=== PATIENT | male | born 1955 | race Caucasian/White ===

== ENCOUNTER 2017-02-16 08:00 | Inpatient (IN) ==
--- NOTE | 2017-02-16 08:10 | Emergency Department Note ---
Siddhartha Quintanilla Emily, am scribing for, and in the presence of, Power Sexton MD 08:08. Carlie Quintanilla James D, MD, personally performed the services described in this documentation, ascribed by Filomena Carl in my presence, and it is both accurate and complete 808 . Arrival - Arrival Chief Complaint: Shortness of Breath Stated Complaint: sob Mode of Arrival: Stretcher Limitations: No Limitations Source: Patient, EMS Time Seen by Provider: 02/16/17 08:02 - History of Present Illness HPI Narrative: Pt is a 61 y/o male who was brought to ED by EMS from home for further evaluation of severe SOB that suddenly started this morning. Pt has mild swelling in lower extremities, GRECO, and MARTINEZ, but denies chest pain or fever. Pt was put on CPAP and given nitro at home before leaving home and had relief, until he got up and walked around, per EMS. Pt denies smoking or former smoker. Onset (ago): hour(s) Consistency: constant Severity: moderate, severe Severity scale (1-10): 8 Allergies/Adverse Reactions: Allergies Allergy/AdvReac Type Severity Reaction Status Date / Time No Known Allergies Allergy Verified 02/16/17 08:16 Review of System - Review of System 12 point system: reviewed and no additional remarkable complaints except as stated - Review of System Constitutional: Absent: fever, weakness Respiratory: Present: respiratory distress (SOB) Cardiovascular: Present: dyspnea on exertion, edema (in lower extremities). Absent: chest pain Gastrointestinal: Absent: abdominal pain, nausea, vomiting Musculoskeletal: Absent: arm pain Skin: Absent: rash Neurological: Present: headache Medical,Surgical,& Family Hx - Social History Marital Status: Single Lives With:: Alone Functional capacity: independent ambulation Exam Vital Signs: Vital Signs Temperature 98.1 F 02/16/17 08:00 Pulse Rate 73 02/16/17 08:00 Respiratory Rate 30 H 02/16/17 08:00 Blood Pressure 146/86 02/16/17 08:00 O2 Sat by Pulse Oximetry 86 L 02/16/17 08:00 GENERAL: This is a well-nourished well-developed morbidly obese white male in mild respiratory distress. VITAL SIGNS: Reviewed HEENT: Head is atraumatic and normocephalic. Pupils are equal round react to light. Extraocular movements are intact. Oropharynx is benign with moist mucous membranes. NECK: Neck is soft and supple without tenderness. There are no masses. There is no lymphadenopathy. LUNGS: Lungs are clear to auscultation. Chest rises symmetrically. There is no chest wall tenderness. CV: Heart is rapid rate regular rhythm without murmurs rubs or gallops. ABDOMEN: Abdomen is soft, nontender to palpation. There are no abdominal abnormal masses palpated. There is no organomegaly. Bowel sounds are present and active. SKIN: Skin is warm and dry. No rash. EXTREMITIES: Patient has full range of motion without tenderness. There is 1+ pedal edema. NEUROLOGIC: Awake alert and oriented 4. Cranial nerves II through XII are grossly intact. Motor is 5 over 5 in all extremities bilaterally. Results - Labs CBC & BMP: 02/16/17 08:20 02/16/17 08:20 Lab Results: I have reviewed the patients labs Labs: Laboratory Tests 02/16/17 08:13 ABG pH 7.389 ABG pCO2 41.8 ABG pO2 89.2 ABG HCO3 24.4 ABG Total CO2 20.7 L ABG O2 Saturation 96.2 ABG Base Excess 0.1 Laboratory Tests 02/16/17 08:20 WBC 10.9 RBC 5.43 Hgb 17.4 Hct 52.4 H Plt Count 151 Lymph % (Auto) 19.3 L Neut # (Auto) 7.9 H Laboratory Tests 02/16/17 08:20 B-Natriuretic Peptide 155 H Laboratory Tests 02/16/17 08:20 Sodium 140 Potassium 4.8 Chloride 105 Carbon Dioxide 27 BUN 23 H Creatinine 1.80 H GFR Calculation 73 Glucose 195 H AST 20 Troponin I 0.906 H Albumin/Globulin Ratio 1.0 L - EKG EKG results: interpreted by ERMWilly, sinus rhythm (93) - Impressions EKG: Normal sinus rhythm with rate of 93, old inferior NC, old anteroseptal NC, nonspecific ST-T wave changes. - Diagnostic Findings Procedure: Chest x-ray: image reviewed by me, report reviewed by me (At the right lung base, there is indistinctness of the hemidiaphragm. This could be due to combination of eventration, and infiltrate and/or atelectasis. PA and lateral chest recommended.), CT - chest: image reviewed by me (Bilateral massive pulmonary emboli.), Ultrasound: report reviewed by me (Venous doppler: Eccentric, nonocclusice probable chronic DVT left popliteal vein.) Disposition Clinical Impression: Dyspnea on exertion, Morbid obesity, Deep vein thrombosis (DVT) of popliteal vein of left lower extremity, Bilateral pulmonary embolism Case discussed with: patient Disposition: Still a Patient Condition: Guarded
[2017-02-16 08:18] LABS: ABG Base Excess 0.1 MMOL/L (-2.5-2.5); ABG HCO3 24.4 MMOL/L (20-26); ABG Oxygen Saturation 96.2 % (95-100); ABG PCO2 41.8 MM HG (35-48); ABG PH 7.389 (7.35-7.45); ABG PO2 89.2 MM HG (80-95); ABG TCO2 20.7 MMOL/L (23-27)
--- NOTE | 2017-02-16 08:26 | EKG Report ---
Stationary ECG Study [facility] ER Test Date: 02/16/2017 8:06:27 AM Pat Name: ALYX SHELTON Department: Room: Gender: M Blowing Engineer: : 1955 Requested by: Power Aguilera Order Number: [id number] Reading MD: BERE TUNRER Intervals [place] Rate: 93 P: 54 [place]: 184 QRS: -76 QRSD: 94 T: 52 QT: 351 QTc: 402 Interpretive Statements SINUS RHYTHM INFERIOR MYOCARDIAL INFARCTION, OF INDETERMINATE AGE ANTEROSEPTAL MYOCARDIAL INFARCTION, OF INDETERMINATE AGE Electronically Signed On 02-16-17 09:41:05 CDT by BERE TURNER [email or web address]
[2017-02-16 08:28] LABS: Basophils % 0.3 % (0.0-0.8)
[2017-02-16 08:32] LABS: Lymphocytes # 2.1 10*3/uL (1.4-4.0); Monocytes % 6.9 % (1.7-12.7)
[2017-02-16 08:39] LABS: Eosinophils # 0.1 10*3/uL (0.0-0.87); Eosinophils % 0.5 % (0.00-10.9); Hematocrit 52.4 VOL% (42.0-52.0); Hemoglobin 17.4 GM/DL (14.0-18.0); Immature Granulocytes % 0.4 %; Immature Granulocytes Absolute 0.04 #; Lymphocytes % 19.3 % (21.2-54.2); Mean Corpuscular HGB Conc 33.2 GM/DL (32-36); Mean Corpuscular Hemoglobin 32 PG (27-34); Mean Corpuscular Volume 96.5 FL (87-102); Monocytes # 0.8 10*3/uL (0.11-0.8); NRBC # 0.03 10*3/uL; Neutrophils # 7.9 10*3/uL (1.4-7.4); Neutrophils % 72.6 % (38.7-73.9); Platelet Count 151 T/CUMM (130-400); Red Blood Count 5.43 MC/CUMM (3.8-5.5); Red Cell Distribution Width 14.7 % (9.3-17.3); White Blood Count 10.9 T/CUMM (4-12)
--- NOTE | 2017-02-16 08:41 | XRay Report ---
Portable chest. Indication: Shortness of breath. The heart is upper limits of normal in size. The pulmonary vasculature is normal. There is indistinctness of the right hemidiaphragm. This could be due to volume loss, infiltrate, and at least partly by eventration of the right hemidiaphragm. PA and lateral chest recommended for further evaluation. The left lung is essentially clear. Possible small granuloma at the lateral aspect of the left lung base. No pneumothorax. Degenerative changes in the spinal column. Impression: At the right lung base, there is indistinctness of the hemidiaphragm. This could be due to a combination of eventration, and infiltrate and/or atelectasis. PA and lateral chest recommended. PROCEDURE INTERPRETED AT [facility] DEPARTMENT OF RADIOLOGY Final Report Signed by: Dr. Florencia Solis
[2017-02-16 08:58] LABS: Albumin 3.8 G/DL (3.4-5.0); Bilirubin,Total 0.6 MG/DL (0.2-1.0); Calcium 8.7 MG/DL (8.5-10.1); Osmolality,Calculated 287.4 MOS/KG (273-304); Potassium 4.8 MMOL/L (3.5-5.1); Total Protein 7.3 G/DL (6.4-8.3)
[2017-02-16] MEDS ORDERED: ENOXAPARIN 120 MG/0.8 ML SYRINGE SUBCUT STA (09:00)
[2017-02-16] MEDS ORDERED: ENOXAPARIN 120 MG/0.8 ML SYRINGE SUBCUT ONE (09:02)
[2017-02-16 09:04] LABS: Troponin I Only 0.906 NG/ML (0.00-0.045)
--- NOTE | 2017-02-16 09:15 | Ultrasound Report ---
US venous doppler LE BI Indication: Lower extremity edema. Dyspnea. BILATERAL LOWER EXTREMITY VENOUS ULTRASOUND Comparison: None Findings: Graded grayscale compression, color Doppler and pulsed Doppler ultrasound evaluation of the venous structures performed. Normal compressibility, augmentation and color saturation is present within the right common femoral, superficial femoral, popliteal and proximal greater saphenous veins. Similar normal features are present in the left common femoral vein and superficial femoral vein. There is eccentric nonocclusive probable chronic DVT in the left popliteal vein. Impression: Eccentric, nonocclusive probable chronic DVT left popliteal vein. PROCEDURE INTERPRETED AT [facility] DEPARTMENT OF RADIOLOGY Final Report Signed by: Rod John M.D.
--- NOTE | 2017-02-16 10:40 | Cardiology History & Physical ---
Assessment and Plan (1) Cor pulmonale, acute Status: Acute Assessment and plan: 1. 61-year-old BMI 62.5 WM oral tobacco user with hypertension, NIDDM, DVT in 2005 after surgery for incarcerated inguinal hernia, now presents with 2 days of progressive now severe dyspnea on exertion with bilateral proximal pulmonary emboli and acute cor pulmonale with severe right ventricular enlargement and elevated troponin consistent with submassive pulmonary embolism. 2. He is received Lovenox already which is appropriate 3. Discussed with him the risks and benefits of catheter directed thrombolysis versus conservative therapy with anticoagulation. He is agreeable to intervention for quicker resolution of his symptoms. We will plan this today. I discussed with the patient the risks and benefits of catheter directed thrombolysis for submassive pulmonary emboli including but not limited to: , stroke, heart attack, vascular damage, reaction to medicine, bleeding requiring blood transfusion, failure of the procedure, and the possible need for planned or emergency surgery. I have answered all the patient's questions regarding the procedure, and the patient is agreeable to proceed. Current Visit: Yes (2) Diabetes Status: Acute Current Visit: Yes (3) DVT (deep venous thrombosis) Status: Acute Current Visit: Yes (4) Bilateral pulmonary embolism Status: Acute Current Visit: Yes History of Present Illness Chief complaint: sob History of present illness: Mr. Gama is a 61 year old male who goes to a clinic sporadically and [place]. The he has not been hospitalized in many years. He has chronic dependent edema worse on the right. He has increased dyspnea on exertion for the last 2 days which eventually caused him come the emergency room today where he was found to have large proximal PEs on CT scan. He denies chest discomfort. He says he does have some orthostasis but his blood pressure is currently stable. He had a DVT in 2005 after he had surgery for incarcerated hernia. He has no history of TIA or stroke. He has no history of bleeding problems and just that one DVT. He is not allergic to anything. He has no previous cardiac problems with no heart attack heart failure rhythm problem or chest pains. He does have some daytime somnolence but has not been diagnosed with REID. Allergies Allergy/AdvReac Type Severity Reaction Status Date / Time No Known Allergies Allergy Verified 02/16/17 08:16 Medical,Surgical,& Family Hx - Medical History Cardio: History of: Hypertension Endocrine: History of: Diabetes Mellitus (NIDDM) - Social History Smoking Status: Never smoker Frequency of Alcohol Use: None Type of Drug Use: None Cardiology Physical Exam - Constitutional Vitals: Vital Signs Temp Pulse Resp BP Pulse Ox 98.1 F 73 30 H 146/86 86 L 02/16/17 08:00 02/16/17 08:00 02/16/17 08:00 02/16/17 08:00 02/16/17 08:00 Intake and Output 02/15/17 02/16/17 02/16/17 23:59 07:59 15:59 Other: Weight 226.796 kg Patient Weight 02/16/17 23:59 Weight 226.796 kg General appearance: mild distress, morbidly obese - Head Head exam: Present: normal inspection, normocephalic, atraumatic - Neck Neck exam: Present: normal inspection - Cardiovascular Cardiovascular exam: Present: tachycardia. Absent: diastolic murmur, rubs, systolic murmur - GI/Abdominal GI/Abdominal exam: Present: soft. Absent: tenderness - Extremities Exam Extremities exam: Present: edema (Venous insufficiency changes with widened 2+ edema on the right and 1+ in the left) - Neurological Exam Neurological exam: Present: alert, oriented X3 - Psychiatric Psychiatric exam: Present: normal affect Result/EKG - Labs CBC & BMP: 02/16/17 08:20 02/16/17 08:20 Labs: Laboratory Results - last 24 hr 02/16/17 02/16/17 02/16/17 08:13 08:20 08:20 WBC 10.9 RBC 5.43 Hgb 17.4 Hct 52.4 H MCV 96.5 MCH 32 MCHC 33.2 RDW 14.7 Plt Count 151 MPV 10.0 Neut % (Auto) 72.6 Lymph % (Auto) 19.3 L [place] % (Auto) 6.9 Eos % (Auto) 0.5 Baso % (Auto) 0.3 Neut # (Auto) 7.9 H Lymph # (Auto) 2.1 [place] # (Auto) 0.8 Eos # (Auto) 0.1 Baso # (Auto) 0.0 Immature Gran % 0.4 Nucleated RBC % 0.3 Immature Gran # 0.04 Nucleated RBCs # 0.03 Immature Plt Fraction 0.0 ABG pH 7.389 ABG pCO2 41.8 ABG pO2 89.2 ABG HCO3 24.4 ABG Total CO2 20.7 L ABG O2 Saturation 96.2 ABG Base Excess 0.1 Sodium 140 Potassium 4.8 Chloride 105 Carbon Dioxide 27 Anion Gap 12.8 BUN 23 H Creatinine 1.80 H GFR Calculation 73 BUN/Creatinine Ratio 12.00 Glucose 195 H Calculated Osmolality 287.4 Calcium 8.7 Total Bilirubin 0.60 AST 20 ALT 27 Alkaline Phosphatase 85 Troponin I 0.906 H B-Natriuretic Peptide Total Protein 7.3 Albumin 3.8 Globulin 3.5 Albumin/Globulin Ratio 1.0 L 02/16/17 08:20 WBC RBC Hgb Hct MCV MCH MCHC RDW Plt Count MPV Neut % (Auto) Lymph % (Auto) [place] % (Auto) Eos % (Auto) Baso % (Auto) Neut # (Auto) Lymph # (Auto) [place] # (Auto) Eos # (Auto) Baso # (Auto) Immature Gran % Nucleated RBC % Immature Gran # Nucleated RBCs # Immature Plt Fraction ABG pH ABG pCO2 ABG pO2 ABG HCO3 ABG Total CO2 ABG O2 Saturation ABG Base Excess Sodium Potassium Chloride Carbon Dioxide Anion Gap BUN Creatinine GFR Calculation BUN/Creatinine Ratio Glucose Calculated Osmolality Calcium Total Bilirubin AST ALT Alkaline Phosphatase Troponin I B-Natriuretic Peptide 155 H Total Protein Albumin Globulin Albumin/Globulin Ratio
--- NOTE | 2017-02-16 10:53 | CT Report ---
CT chest PE study Indication: Shortness of breath. CT CHEST WITH CONTRAST, PE PROTOCOL DLP: 1094 mGy*cm. One or more of the following dose reduction techniques was used: Automated exposure control, adjustment of the mA and/or kV according the patient size, or use of iterative reconstruction techniques. Comparison: None Technique: Axial CT images of the chest were obtained during the pulmonary arterial phase of contrast injection. Coronal reconstructions were provided. Omnipaque 350, 80 cc. Findings: Image transfer delay between CT scanner in PACS, with report only now being dictated. Time of initial study 0957 hours, with preliminary interpretation by 0930 hours. Acute pulmonary embolus is present within the right upper lobe, right middle lobe, right lower lobe, left upper lobe and left lower lobe proximal pulmonary arteries. The thrombus is not draped over the main pulmonary artery bifurcation. However, thrombus burden is significant. Main pulmonary artery is 36 mm diameter. The LV-RV ratio is 0.74 indicating right heart strain by imaging. Heart size is normal. Aorta is intact without dissection or aneurysm. Variant anatomy of the left vertebral artery originating directly off the arch noted. Atelectasis and pulmonary hypoinflation of the lungs noted. No confluent areas of consolidation identified. However, there is a cluster of nodules within the lingula measuring approximately 20 x 14 mm in size. Pleural spaces are clear. Limited views of the upper abdomen show morbid obesity and fatty infiltration of the liver. Upper abdomen is otherwise unremarkable. Impression: 1. Acute pulmonary embolus bilateral main pulmonary arteries as described. Evidence of right heart strain. 2. Small cluster of nodules within the lingula, 20 x 14 mm in size. Three-month follow-up CT necessary to evaluate change. Comment: Critical test result discussed primarily with Dr. Wheat at approximately 1000 hours. PROCEDURE INTERPRETED AT [facility] DEPARTMENT OF RADIOLOGY Final Report Signed by: Rod John M.D.
[2017-02-16] MEDS ORDERED: ALTEPLASE 2 MG VIAL ONE (11:02)
[2017-02-16] MEDS ORDERED: LIDOCAINE 1% 20 ML VIAL ONE ×2 (11:07→12:32)
[2017-02-16] MEDS ORDERED: HYDROmorphone 2 MG/1 ML VIAL ONE (11:24)
[2017-02-16] MEDS ORDERED: MIDAZOLAM 2 MG/2 ML VIAL ONE (11:24)
[2017-02-16] MEDS ORDERED: MAGNESIUM SULF RIDER 4 GM in PREMIX 1 EACH IV PRN (13:24)
[2017-02-16] MEDS ORDERED: MAGNESIUM SULF RIDER 2 GM in PREMIX 1 EACH IV PRN (13:24)
[2017-02-16] MEDS ORDERED: ACETAMINOPHEN 325 MG TABLET PO PRN (13:24)
[2017-02-16] MEDS ORDERED: SODIUM CHLORIDE 0.9% 1,000 ML IV SCH ×2 (13:25)
[2017-02-16] MEDS ORDERED: ALTEPLASE 6 MG in SODIUM CHLORIDE 0.9% 120 ML IV ONE (13:25)
--- NOTE | 2017-02-16 13:29 | Operative Note ---
Date of procedure: 02/16/17 Procedure Preformed: Placement of catheter directed thrombolysis catheters to right and left pulmonary artery Surgeon / Physician: Kolby Herrera Post-op diagnosis: same Findings: Findings: Placement of right and left EKOS catheters to right and left pulmonary arteries for catheter directed thrombolysis Indication: Bilateral submassive pulmonary emboli Specimens: none sent Estimated blood loss: minimal Anesthesia: other Disposition: ICU
--- NOTE | 2017-02-16 14:07 | Cardiology Operative Report ---
Date of Procedure:: 02/16/17 Post-op diagnosis: same Procedure: Procedure performed: 1. Placement of left femoral vein sheath 2 using ultrasonic guidance 2. Placement of EKOS catheter in left pulmonary artery for catheter directed thrombolysis 3. Placement of EKOS catheter in right pulmonary artery for catheter directed thrombolysis Brief clinical summary: Mr. Gama is a 51-year-old with severe shortness of breath elevated troponin and severely elevated right ventricle with submassive pulmonary emboli bilaterally and acute cor pulmonale. Description of procedure: After obtaining informed consent the patient transfer the Conservation Or Heritage Architect of the right groin was prepped and draped in usual sterile fashion. Next a short 6 Togolese sheath was placed in the right femoral vein using a Seldinger technique. This was done with some difficulty given the lack of a pulse given the patient's large pannus. I then changed out the 6 Togolese sheath for a 12 Togolese sheath successfully. However when I advanced the J-wire admit with some resistance and the sheath completely "backed out" and was unable to reestablish access using the short 6 Togolese sheath. I then held pressure for 11 minutes which obtained hemostasis. I made multiple cystic significant superior to this without success. I therefore had the left groin prepped and draped. Then using ultrasonic guidance I was able to access the left femoral vein 2. I advanced a long J-wire with a bent pigtail catheter manipulated the left pulmonary artery with only modest difficulty. Then changed out the pigtail for EKOS outer catheter. The wire was then removed and the EKOS inner catheter was advanced in fixed in place. Next the coolant and TPA infusion were started. After this the bent pigtail was advanced over a long J-wire and the other sheath was also in the left femoral vein I was able to access the right pulmonary artery fairly quickly. The wire was advanced and the pigtail was removed. Next I advanced an outer EKOS catheter over the wire into the right pulmonary artery. The wire was then removed and inner catheter was advanced and fixed in place. The coolant and TPA infusion were then started. Placement of the catheter was documented with fluoroscopy save. Impression: 1. Status post successful placement of EKOS catheters in the left and right pulmonary artery for catheter directed thrombolysis 2. Placement of 2 short 6 Togolese sheath in the left femoral vein to facilitate catheter placement. 3. Placement of 12 Togolese sheath in right femoral vein with loss of access; prolonged pressure was used to obtain hemostasis as detailed above. Recommendation discussion: I believe achieved very good result with regard to placement of right and left pulmonary artery catheters for thrombolysis. We will give 1 mg/h of TPA to each of the pulmonary catheters for 6 hours. Cool will continue throughout the night and I will plan to pull the catheters in the morning. Will start Eliquis 10 mg this evening and then twice daily for treatment of the residual clot from his pulmonary emboli. He will be watched closely in the CCU/ICU per Anesthesia: minimal conscious sedation Surgeon / Physician: Kolby Herrera Insurance Adviser: other Estimated blood loss: minimal Specimens: none sent Condition: stable Disposition: ICU/CCU
[2017-02-16] MEDS: ONDANSETRON 4 MG/2 ML VIAL IV PRN (14:29)
--- NOTE | 2017-02-16 14:37 | ECHO Report ---
Pawel Gama Exam Date: 02/16/2017 10:34 Referring Physician: Technologist: Laurie Martinez RDCS Age: 61 Ht (in): 75 Wt (lb): 500 Gender: M Exam Location: [facility] Echo Indications: Shortness of breath, Edema, unspecified, GRECO, Headache BP: 119 / 70 HR: 89 Rhythm: Sinus Technical Quality: Technically difficult study IMPRESSIONS Technically difficult study Probable 2+ right ventricular enlargement with reasonable RV systolic function 2-3+ concentric LVH Normal LV systolic function with ejection fraction estimated be 65% without obvious segmental wall motion normality 1-2+ tricuspid regurgitation with RVSP 47 mmHg plus RAP MEASUREMENTS (Male / Female) Normal Values 2D ECHO LV Diastolic Diameter PLAX 3.9 cm 4.2 - 5.9 / 3.9 - 5.3 cm LV Systolic Diameter PLAX 3.3 cm LV Fractional Shortening PLAX 15.7 % IVS Diastolic Thickness 1.5 cm 0.6 - 1.0 / 0.6 - 0.9 cm LVPW Diastolic Thickness 1.5 cm 0.6 - 1.0 / 0.6 - 0.9 cm RV Internal Dim ED PLAX 3.5 cm Aortic Root Diameter 3.8 cm LA Systolic Diameter LX 3.7 cm 3.0 - 4.0 / 2.7 - 3.8 cm DOPPLER TR Peak Velocity 341.0 cm/s TR Peak Gradient 46.5 mmHg FINDINGS Left Ventricle Normal left ventricular cavity size. Moderate left ventricular hypertrophy. Left ventricular ejection fraction is estimated at Right Ventricle The right ventricle is normal in size and function. Right Atrium The right atrium is normal in size. Left Atrium The left atrium is normal in size. Mitral Valve Morphologically normal mitral valve without significant stenosis or prolapse. There is no mitral regurgitation. Aortic Valve Morphologically normal aortic valve without significant sclerosis or stenosis. There is no aortic regurgitation. Tricuspid Valve Morphologically normal tricuspid valve. Trace to mild tricuspid valve regurgitation. Tricuspid regurgitation velocities suggest a PAP of 57 mmHg. Pulmonic Valve Morphologically normal pulmonic valve without significant stenosis. There is no pulmonic regurgitation. Pericardium Normal pericardium without effusion. Aorta Normal ascending aorta dimension. Kolby Herrera (Electronically Signed) Final Date: 16 February 2017 14:35
--- NOTE | 2017-02-16 14:53 | EKG Report ---
Stationary ECG Study [facility] Test Date: 02/16/2017 2:53:42 PM Pat Name: ALYX SHELTON Department: Room: 126 Gender: M Desktop Support Technician: : 1955 Requested by: Power Aguilera Order Number: [id number] Reading MD: BERE TURNER Intervals [place] Rate: 79 P: 66 [place]: 192 QRS: 261 QRSD: 102 T: 74 QT: 386 QTc: 421 Interpretive Statements SINUS RHYTHM INCOMPLETE RIGHT BUNDLE BRANCH BLOCK RIGHT VENTRICULAR HYPERTROPHY ANTEROSEPTAL MYOCARDIAL INFARCTION, OF INDETERMINATE AGE Electronically Signed On 02-16-17 15:53:58 CDT by BERE TURNER [email or web address]
[2017-02-16] MEDS: ALBUTEROL/IPRATROPIUM 3 ML NEB RESP TX SCH ×3 (15:45→23:25)
[2017-02-16] MEDS ORDERED: LORazepam 0.5 MG TABLET PO PRN (15:49)
[2017-02-16] MEDS ORDERED: APIXABAN 5 MG TABLET PO SCH (21:00)
[2017-02-17] MEDS: ALBUTEROL/IPRATROPIUM 3 ML NEB RESP TX SCH ×6 (02:43→23:10)
[2017-02-17 05:38] LABS: Basophils % 0.2 % (0.0-0.8); Hematocrit 44.8 VOL% (42.0-52.0); Hemoglobin 14.2 GM/DL (14.0-18.0); Immature Granulocytes % 0.6 %; Immature Granulocytes Absolute 0.08 #; Lymphocytes # 2.4 10*3/uL (1.4-4.0); Lymphocytes % 16.5 % (21.2-54.2); Mean Corpuscular HGB Conc 31.7 GM/DL (32-36); Mean Corpuscular Hemoglobin 32 PG (27-34); Mean Corpuscular Volume 101.6 FL (87-102); Monocytes # 1.8 10*3/uL (0.11-0.8); Monocytes % 12.3 % (1.7-12.7); NRBC # 0.14 10*3/uL; Neutrophils % 70.4 % (38.7-73.9); Platelet Count 146 T/CUMM (130-400); Red Blood Count 4.41 MC/CUMM (3.8-5.5); Red Cell Distribution Width 15.1 % (9.3-17.3); White Blood Count 14.3 T/CUMM (4-12)
[2017-02-17 06:09] LABS: Albumin 3.1 G/DL (3.4-5.0); Bilirubin,Total 0.6 MG/DL (0.2-1.0); Calcium 8.1 MG/DL (8.5-10.1); Osmolality,Calculated 289.5 MOS/KG (273-304); Potassium 5.6 MMOL/L (3.5-5.1); Total Protein 6.2 G/DL (6.4-8.3)
[2017-02-17 06:10] LABS: Troponin I Only 0.453 NG/ML (0.00-0.045)
[2017-02-17] MEDS ORDERED: SODIUM CHLORIDE 0.9% 1,000 ML IV SCH ×2 (07:00→07:30)
[2017-02-17] MEDS ORDERED: SODIUM CHLORIDE 0.9% 500 ML IV ONE ×2 (07:00)
--- NOTE | 2017-02-17 07:26 | Cardiology Progress Note ---
Assessment and Plan (1) Cor pulmonale, acute Status: Acute Assessment and plan: 1. 61-year-old BMI 62.5 WM oral tobacco user with hypertension, NIDDM, DVT in 2005 after surgery for incarcerated inguinal hernia, now presents with 2 days of progressive now severe dyspnea on exertion with bilateral proximal pulmonary emboli and acute cor pulmonale with severe right ventricular enlargement and elevated troponin consistent with submassive pulmonary embolism. 2. He is received Lovenox already which is appropriate 3. Discussed with him the risks and benefits of catheter directed thrombolysis versus conservative therapy with anticoagulation. He is agreeable to intervention for quicker resolution of his symptoms. We will plan this today. I discussed with the patient the risks and benefits of catheter directed thrombolysis for submassive pulmonary emboli including but not limited to: , stroke, heart attack, vascular damage, reaction to medicine, bleeding requiring blood transfusion, failure of the procedure, and the possible need for planned or emergency surgery. I have answered all the patient's questions regarding the procedure, and the patient is agreeable to proceed. February 17 2017: 1. Mr. Gama's dyspnea has improved significantly, but he is a bit hypotensive with no urine output since midnight. This is complicated by the fact that his penis is not visible in his retracted related to his morbid obesity. His blood pressure response normal saline bolus and will continue normal saline infusion. I suspect is related to right heart failure from his acute cor pulmonale. 2. Oozing in his right groin site (had a 12 Yoruba venous sheath in it); this seems to have slowed significantly but will check ultrasound and place a fresh pressure dressing to better assess it. 3. Consult nephrology given his creatinine is now well over 3; he did not receive any dye so I suspect that this is related to the hypotension from acute cor pulmonale. Hopefully respond to normal saline boluses. 4. We will proceed with Eliquis at 9 AM and less ultrasound shows something particularly worrisome at the right groin 5. Continue to follow closely in the CCU 6. We will defer to nephrology whether he needs Felton catheter or urology evaluation? Current Visit: Yes (2) Diabetes Status: Acute Current Visit: Yes (3) DVT (deep venous thrombosis) Status: Acute Current Visit: Yes (4) Bilateral pulmonary embolism Status: Acute Current Visit: Yes Cardiology - PN: Subj Interval history: Mr. Gama has had no urine output during the night and his creatinine is elevated. He is less short of breath. Is not having any chest pain or dizziness. He had some oozing from his right femoral vein access site during the night but seems to be slowed this morning. Exam (Progress Note) - Constitutional Vitals: Period Temp Pulse Resp BP Sys/Perla Pulse Ox Last 24 Hr 96.9 F-98.1 F 71-95 17-30 84-150/42-92 86-98 General appearance: no acute distress, morbidly obese - Head Head exam: Present: normal inspection, normocephalic, atraumatic - Neck Neck exam: Present: normal inspection - Respiratory Respiratory exam: Absent: stridor, wheezes - Cardiovascular Cardiovascular exam: Present: regular rate and rhythm. Absent: diastolic murmur , rubs - GI/Abdominal GI/Abdominal exam: Present: soft. Absent: tenderness - Extremities Exam Extremities exam: Present: edema, other (Right groin with very trivial oozing hemorrhagic bandage makes it difficult to assess well per) Result/EKG - Labs CBC & BMP: 02/17/17 04:30 02/17/17 04:30 Labs: Laboratory Results - last 24 hr 02/16/17 02/16/17 02/16/17 08:13 08:20 08:20 WBC 10.9 RBC 5.43 Hgb 17.4 Hct 52.4 H MCV 96.5 MCH 32 MCHC 33.2 RDW 14.7 Plt Count 151 MPV 10.0 Neut % (Auto) 72.6 Lymph % (Auto) 19.3 L Good[place] % (Auto) 6.9 Eos % (Auto) 0.5 Baso % (Auto) 0.3 Neut # (Auto) 7.9 H Lymph # (Auto) 2.1 Gooding # (Auto) 0.8 Eos # (Auto) 0.1 Baso # (Auto) 0.0 Immature Gran % 0.4 Nucleated RBC % 0.3 Immature Gran # 0.04 Nucleated RBCs # 0.03 Immature Plt Fraction 0.0 ABG pH 7.389 ABG pCO2 41.8 ABG pO2 89.2 ABG HCO3 24.4 ABG Total CO2 20.7 L ABG O2 Saturation 96.2 ABG Base Excess 0.1 Sodium 140 Potassium 4.8 Chloride 105 Carbon Dioxide 27 Anion Gap 12.8 BUN 23 H Creatinine 1.80 H GFR Calculation 73 BUN/Creatinine Ratio 12.00 Glucose 195 H POC Glucose Calculated Osmolality 287.4 Calcium 8.7 Total Bilirubin 0.60 AST 20 ALT 27 Alkaline Phosphatase 85 Troponin I 0.906 H B-Natriuretic Peptide Total Protein 7.3 Albumin 3.8 Globulin 3.5 Albumin/Globulin Ratio 1.0 L 02/16/17 02/16/17 02/16/17 08:20 16:43 21:57 WBC RBC Hgb Hct MCV MCH MCHC RDW Plt Count MPV Neut % (Auto) Lymph % (Auto) Good[place] % (Auto) Eos % (Auto) Baso % (Auto) Neut # (Auto) Lymph # (Auto) Good[place] # (Auto) Eos # (Auto) Baso # (Auto) Immature Gran % Nucleated RBC % Immature Gran # Nucleated RBCs # Immature Plt Fraction ABG pH ABG pCO2 ABG pO2 ABG HCO3 ABG Total CO2 ABG O2 Saturation ABG Base Excess Sodium Potassium Chloride Carbon Dioxide Anion Gap BUN Creatinine GFR Calculation BUN/Creatinine Ratio Glucose POC Glucose 192 H 183 H Calculated Osmolality Calcium Total Bilirubin AST ALT Alkaline Phosphatase Troponin I B-Natriuretic Peptide 155 H Total Protein Albumin Globulin Albumin/Globulin Ratio 02/17/17 02/17/17 04:30 04:30 WBC 14.3 H D RBC 4.41 Hgb 14.2 D Hct 44.8 MCV 101.6 MCH 32 MCHC 31.7 L RDW 15.1 Plt Count 146 MPV 11.0 Neut % (Auto) 70.4 Lymph % (Auto) 16.5 L Good[place] % (Auto) 12.3 Eos % (Auto) 0.0 Baso % (Auto) 0.2 Neut # (Auto) 10.0 H Lymph # (Auto) 2.4 Gooding # (Auto) 1.8 H Eos # (Auto) 0.0 Baso # (Auto) 0.0 Immature Gran % 0.6 Nucleated RBC % 1.0 Immature Gran # 0.08 Nucleated RBCs # 0.14 Immature Plt Fraction 0.0 ABG pH ABG pCO2 ABG pO2 ABG HCO3 ABG Total CO2 ABG O2 Saturation ABG Base Excess Sodium 139 Potassium 5.6 H Chloride 107 Carbon Dioxide 24 Anion Gap 13.6 BUN 34 H D Creatinine 3.40 H GFR Calculation 32 BUN/Creatinine Ratio 10.00 Glucose 180 H POC Glucose Calculated Osmolality 289.5 Calcium 8.1 L Total Bilirubin 0.60 AST 14 ALT 18 Alkaline Phosphatase 66 Troponin I 0.453 H D B-Natriuretic Peptide Total Protein 6.2 L Albumin 3.1 L Globulin 3.1 Albumin/Globulin Ratio 1.0 L
--- NOTE | 2017-02-17 07:53 | EKG Report ---
Stationary ECG Study [facility] Test Date: 02/17/2017 7:54:17 AM Pat Name: ALYX SHELTON Department: Room: 126 Gender: M Manager Transit: MARYLOU : 1955 Requested by: Kolby Cornelius Order Number: [id number] Reading MD: BERE TURNER Intervals [place] Rate: 84 P: 69 VA: 162 QRS: -39 QRSD: 109 T: 75 QT: 385 QTc: 426 Interpretive Statements SINUS RHYTHM MARKED LEFT AXIS DEVIATION POSSIBLE ANTERIOR MYOCARDIAL INFARCTION, OF INDETERMINATE AGE Electronically Signed On 02-17-17 13:13:45 CDT by BERE TURNER [email or web address]
--- NOTE | 2017-02-17 09:46 | Ultrasound Report ---
US arterial duplex LE RT Clinical Information: POST ECKOS/POSSIBLE HEMATOMA Comparison: None available Technique: Targeted ultrasound evaluation of the right common femoral artery/vein was performed with grayscale, color Doppler spectral analysis. Findings: Right common femoral vein and superficial femoral vein are widely patent with no evidence of arterial pulsatility suggest arteriovenous fistula. Additionally, the right superficial and common femoral arteries are also patent with normal velocity and biphasic waveforms on spectral analysis. There is no overlying organized hematoma within the right groin soft tissues. Impression: No evidence of organized hematoma within the right groin. No evidence of arterial pseudoaneurysm or arteriovenous fistula. Patent common and superficial femoral veins with complete compressibility. PROCEDURE INTERPRETED AT [facility] DEPARTMENT OF RADIOLOGY Final Report Signed by: Sage Tran
[2017-02-17] MEDS: APIXABAN 5 MG TABLET PO SCH ×2 (11:06→20:55)
[2017-02-17] MEDS ORDERED: GLUCAGON 1 MG VIAL IM PRN (11:07)
[2017-02-17] MEDS ORDERED: DEXTROSE 50% 25 GM/50 ML SYRINGE IV PRN (11:07)
[2017-02-17] MEDS: PANTOPRAZOLE 40 MG TABLET PO SCH (11:07)
[2017-02-17] MEDS ORDERED: ZINC OXIDE PASTE 113 GM TUBE TOP PRN (11:34)
[2017-02-17] MEDS: ONDANSETRON 4 MG/2 ML VIAL IV PRN (14:40)
[2017-02-17] MEDS: SODIUM CHLORIDE 0.9% 1,000 ML IV SCH (17:01)
--- NOTE | 2017-02-17 17:51 | Nephrology Consult Note ---
History of Present Illness Chief complaint: Acute renal failure History of present illness: Mr. Gama is a 61 year old male history of diabetes hypertension chronic kidney disease with a serum creatinine ranges from 1.82. The gentleman is followed by me in my chronic kidney disease clinic. He has been stable. He has been admitted for bilateral pulmonary embolus. Serum creatinine is trended up from 1 yesterday up to 3 today. Nephrology is been consulted for renal disease and acute renal failure. Patient has have a history of contrast study and has been hypotensive. At present patient did receive fluid management today. Blood pressures improved. He denies any shortness of breath or chest pain at this time. He has been difficult to get a Felton catheter in this patient due to body habitus. No shortness of breath reported by patient today. Home Medications Medication Instructions Recorded Confirmed Type Furosemide Tab [Lasix Tab] 40 mg PO DAILY 02/16/17 02/16/17 History RX: Aspirin 81 mg PO DAILY 02/16/17 02/16/17 History RX: glipiZIDE [Glipizide] 10 mg PO BID 02/16/17 02/16/17 History Allergies Allergy/AdvReac Type Severity Reaction Status Date / Time No Known Allergies Allergy Verified 02/16/17 08:16 Medical,Surgical,& Family Hx - Medical History Cardio: History of: Hypertension Psychological: History of: Depression Endocrine: History of: Diabetes Mellitus (NIDDM) Renal: History of: Renal Problems Musculoskeletal: History of: Back/Neck Problems - Surgical History Abdominal Surgeries: Surgical HX of: Hernia Repair Orthopedic Surgeries: Surgical HX of;: Orthopedic Surgery - Family History Family History: Reports;: Family Hypertension, Family Stroke Denies;: Family Cancer, Family Diabetes, Family Heart Disease - Social History Smoking Status: Never smoker Frequency of Alcohol Use: None Type of Drug Use: None Review of Systems Constitutional: fatigue Gastrointestinal: no abdominal pain, no cramping Genitourinary: no dysuria Exam - Vital Signs Vital signs: Period Temp Pulse Resp BP Sys/Perla Pulse Ox Last 24 Hr 97.2 F-98.1 F 74-92 18-28 84-144/42-81 90-100 - General Appearance General appearance: well-developed, well-nourished, obese EENT: ATNC Neck: supple Respiratory: wheezing Cardiology: no edema, regular rate, regular rhythm Gastrointestinal: normoactive bowel sounds, no tenderness Neurologic: alert and oriented x3 Musculoskeletal: no clubbing Psychiatric: mood/affect appropriate Results - Labs CBC & BMP: 02/17/17 04:30 02/17/17 04:30 Assessment and Plan (1) Acute renal failure Status: Acute Assessment and plan: Agree with IV fluids. Mucomyst 600 mg twice daily for 3 days. Strict I's and O's. Ask urology for a Felton catheter. Renal ultrasound. Daily BMP. Current Visit: Yes (2) Dyspnea on exertion Status: Acute Assessment and plan: Patient remains on facemask oxygen. Current Visit: Yes (3) Morbid obesity Status: Acute Current Visit: Yes (4) Deep vein thrombosis (DVT) of popliteal vein of left lower extremity Status: Acute Current Visit: Yes (5) Bilateral pulmonary embolism Status: Acute Current Visit: Yes (6) Diabetes Status: Chronic Assessment and plan: Continue with sliding scale insulin. Current Visit: Yes Qualifiers: Diabetes mellitus type: type 2 Chronic kidney disease stage: stage 3 ( moderate)
[2017-02-17] MEDS: CALCIUM CARBONATE CHEW 500 MG TABLET PO SCH (18:31)
[2017-02-17] MEDS: INSULIN REGULAR 100 UNIT/ML SUBCUT SCH ×2 (18:32→20:55)
[2017-02-17] MEDS: ACETYLCYSTEINE 600 MG CAPSULE PO SCH (20:55)
[2017-02-18] MEDS: SODIUM CHLORIDE 0.9% 1,000 ML IV SCH ×4 (01:50→19:18)
[2017-02-18] MEDS: ALBUTEROL/IPRATROPIUM 3 ML NEB RESP TX SCH ×6 (03:44→23:18)
[2017-02-18 06:10] LABS: Calcium 7.5 MG/DL (8.5-10.1); Osmolality,Calculated 296.3 MOS/KG (273-304); Potassium 5.6 MMOL/L (3.5-5.1)
--- NOTE | 2017-02-18 08:33 | Ultrasound Report ---
US renal Bilateral Indication: Elevated BUN/creatinine. RENAL ULTRASOUND: Study quality degraded by patient's obesity. Grayscale and color Doppler imaging the kidneys performed. Right kidney measures 110 x 75 x 56 mm. Left kidney measures 102 x 51 x 59 mm. No hydronephrosis, mass, cyst or calcification identified on either side. Color Doppler flow at both renal marichuy documented. Impression: Negative ultrasound the kidneys. PROCEDURE INTERPRETED AT [facility] DEPARTMENT OF RADIOLOGY Final Report Signed by: Rod John M.D.
--- NOTE | 2017-02-18 09:21 | Physician Query Form ---
CLICK EDIT DOCUMENT TO SELECT QUERY ANSWER --> OK --> SIGN Mary Browning RN, CCDS Certified Clinical Pasteurizer W) [phone] (f) [phone] [email or web address] PROVIDERS: Make your selection(s) from the choices in EACH section by typing an "x" and enter comments in the comment section. Please use your independent medical judgment in providing your response. This request does not imply that any particular answer is desired or expected. CLINICAL INDICATORS: (Providers should not edit this section) Medical Record indicates that the patient was admitted with "Bilateral pulmonary embolism", "evaluation of severe SOB", Respirations of 30# with Sat's of 86% in the ER, AND the patient is being treated with CPAP/ Non-Rebreather Mask @ 15 liters. ABG's pH 7.389----pCO2 41.8----p02 89.2 If possible, please further clarify the type and acuity of respiratory diagnosis : ACUITY: (X ) Acute ( ) Chronic ( ) Acute on Chronic TYPE: ( X) Respiratory failure with hypoxia ( ) Respiratory failure with hypercapnia ( ) Respiratory Arrest ( ) Postprocedural/postoperative respiratory failure ( ) Respiratory Insufficiency ( ) ARDS (Adult/Acute Respiratory Distress Syndrome) (X ) Other, please specify: L heart failure to to acute R heart failure (acute cor pulmonale from submassibe B PE), worsened by morbid obesisty with probable obstructive airway component. ( ) Clinically unable to determine Recognized criteria for respiratory failure PH <7.35 or >7.45 PO2 <60 PCO2 >50 RR >24 O2 Sat <90% on RA or <95% on O2 Use of accessory muscles Unable to speak in full sentences Intubation is not required COMMENTS: PLEASE ALSO DOCUMENT RESPONSE IN PROGRESS NOTES AND/OR DISCHARGE SUMMARY Use of terms such as suspected, likely, or probable (associated with a specific diagnosis that is being evaluated, monitored, or treated as if it exists) are acceptable and can be restated in the discharge summary if not ruled out. MTDD
[2017-02-18] MEDS: APIXABAN 5 MG TABLET PO SCH ×2 (09:29→21:28)
[2017-02-18] MEDS: ACETYLCYSTEINE 600 MG CAPSULE PO SCH ×2 (09:29→21:28)
[2017-02-18] MEDS: PANTOPRAZOLE 40 MG TABLET PO SCH (09:31)
[2017-02-18] MEDS: CALCIUM CARBONATE CHEW 500 MG TABLET PO SCH ×3 (09:31→16:57)
[2017-02-18] MEDS: INSULIN REGULAR 100 UNIT/ML SUBCUT SCH ×4 (09:32→21:30)
--- NOTE | 2017-02-18 11:27 | Nephrology Progress Note ---
Nephrology - PN: Subj Interval history: The patient is resting comfortably. Does have a slight expiratory wheeze on exam. Urine output is starting to shredder picker. Creatinine is 3.6. Continue with IV fluids. Daily BMP. Exam (PN)-Nephrology - Vital Signs Vital signs: Period Temp Pulse Resp BP Sys/Perla Pulse Ox Last 24 Hr 97.2 F-98.6 F 74-101 18-30 94-144/57-79 90-100 - General Appearance General appearance: well-developed, well-nourished, obese EENT: ATNC Neck: supple Respiratory: wheezing Cardiology: regular rate, regular rhythm Gastrointestinal: normoactive bowel sounds, no tenderness Neurologic: alert and oriented x3 Musculoskeletal: no deformities, no clubbing Psychiatric: mood/affect appropriate - Lab 02/17/17 04:30 02/18/17 05:05 Most recent lab results ABG pH 7.389 (7.35-7.45) 02/16/17 08:13 ABG pCO2 41.8 MM HG (35-48) 02/16/17 08:13 ABG pO2 89.2 MM HG (80-95) 02/16/17 08:13 ABG HCO3 24.4 MMOL/L (20-26) 02/16/17 08:13 ABG O2 Saturation 96.2 % (95-100) 02/16/17 08:13 Calcium 7.5 MG/DL (8.5-10.1) L 02/18/17 05:05 Assessment and Plan (1) Acute renal failure Status: Acute Assessment and plan: Agree with IV fluids. Mucomyst 600 mg twice daily for 3 days. Strict I's and O's Daily BMP. Current Visit: Yes (2) Dyspnea on exertion Status: Acute Assessment and plan: Patient remains on facemask oxygen. Current Visit: Yes (3) Morbid obesity Status: Acute Current Visit: Yes (4) Deep vein thrombosis (DVT) of popliteal vein of left lower extremity Status: Acute Current Visit: Yes (5) Bilateral pulmonary embolism Status: Acute Current Visit: Yes (6) Diabetes Status: Chronic Assessment and plan: Continue with sliding scale insulin. Current Visit: Yes Qualifiers: Diabetes mellitus type: type 2 Chronic kidney disease stage: stage 3 ( moderate)
--- NOTE | 2017-02-18 12:59 | Cardiology Progress Note ---
Assessment and Plan - Time spent with patient Time spent with patient: Greater than 30 minutes Time spent discussing smoking cessation with patient: 3 to 10 minutes (1) Cor pulmonale, acute Status: Acute Assessment and plan: SEE PLAN OF CARE LISTED BELOW Current Visit: Yes (2) Sleep disorder Status: Chronic Assessment and plan: SEE PLAN OF CARE LISTED BELOW Current Visit: Yes (3) Hyperkalemia Status: Acute Assessment and plan: SEE PLAN OF CARE LISTED BELOW Current Visit: Yes (4) Acute on chronic renal failure Status: Acute Assessment and plan: SEE PLAN OF CARE LISTED BELOW Current Visit: Yes Qualifiers: Chronic kidney disease stage: stage 4 (severe) (5) Dyslipidemia Status: Chronic Assessment and plan: SEE PLAN OF CARE LISTED BELOW Current Visit: Yes (6) Tobacco abuse Status: Chronic Assessment and plan: SEE PLAN OF CARE LISTED BELOW Current Visit: Yes (7) Bilateral pulmonary embolism Status: Acute Assessment and plan: SEE PLAN OF CARE LISTED BELOW Current Visit: Yes (8) Cor pulmonale, acute Status: Acute Assessment and plan: SEE PLAN OF CARE LISTED BELOW Current Visit: Yes (9) Deep vein thrombosis (DVT) of popliteal vein of left lower extremity Status: Chronic Assessment and plan: SEE PLAN OF CARE LISTED BELOW Current Visit: Yes (10) Morbid obesity Status: Chronic Assessment and plan: SEE PLAN OF CARE LISTED BELOW Current Visit: Yes (11) Diabetes Status: Chronic Assessment and plan: SEE PLAN OF CARE LISTED BELOW Current Visit: Yes Qualifiers: Diabetes mellitus type: type 2 Chronic kidney disease stage: stage 3 ( moderate) Cardiology - PN: Subj Interval history: NUTRITION AIDES TEACHER: DR. CARR PCP: [facility] IN [place] SUMMARY: Mr. Gama, 61WM, with risk factors significant for: hypertension, dyslipidemia, obesity, diabetes, tobaccoism. History of DVT 2005, CKD. Admitted February 16, 2017 with acute shortness of breath, found to have bilateral pulmonary emboli, CHF. He was taken emergently to the cardiac catheterization lab where Dr. Carr performed catheter directed thrombolysis to right and left pulmonary artery (EKOS) for submassive pulmonary emboli. He tolerated the procedure well and without complication and was returned to our CCU in stable condition. Echocardiogram: EF 65%, 2-3+ concentric LVH, RVSP 47 mmHg + RAP. FEBRUARY 18, 2017: Nephrology has been following for acute on chronic renal failure. This morning, creatinine continues to increase at 3.6. Suspect this worsening renal insufficiency is related to his hypotension prior to EKOS. IV hydration continues. Remains short of breath with chronic, end expiratory wheezing. Patient states he is feeling better, breathing better. There was a question as to whether he needed a Felton catheter as he was not making urine yesterday however, overnight, it is reported he has had several large episodes of urination. Remains hyperkalemic, potassium 5.6. Will give 1 dose of Kayexalate and continue to follow his labs daily. He is taking no exogenous potassium replacement. Venous Doppler lower extremity reveals an eccentric, nonocclusive probable chronic DVT of the left popliteal vein. Eliquis continues. Renal ultrasound: No significant abnormality. Patient has never been evaluated for sleep apnea. Certainly, his habitus warrants further investigation as his Mallampati Airway Class III-IV, neck circumference > 44 cm. Will consult sleep medicine for evaluation and possible HST. Will further discuss with Dr. Wheat and await additional recommendations per ASSESSMENT/PLAN: 1. BILATERAL PULMONARY EMBOLI - status post EKOS, Eliquis 2. ACUTE ON CKD -apparently, patient is stage III CKD. This is acute worsening of CKD. 3. DVT - currently on Eliquis 4. HYPERTENSION - underlying history but currently unable to tolerate antihypertensives due to low to normal blood pressures. 5. DYSLIPIDEMIA - fasting lipid profile in the morning 6. MORBID OBESITY - dietary counseling prior to discharge 7. SLEEP DISORDER - consult sleep medicine 8. DIABETES - continue sliding scale, adjust medications accordingly 9. HYPERKALEMIA - Kayexalate 1 dose. Monitor BMP daily 10. TOBACCO USE - greater than 5 minutes was spent discussing the merits of tobacco cessation 11. COR PULMONALE, ACUTE - continue current plan of care Exam (Progress Note) - Constitutional Vitals: Period Temp Pulse Resp BP Sys/Perla Pulse Ox Last 24 Hr 97.2 F-98.9 F 79-101 18-30 94-144/57-83 90-100 Exam: General: [Obese, slightly tachypneic. Cooperative. ] HEENT: [PERRL, normocephalic, atraumatic. Mucous membranes moist. No jaundice noted. Conjunctiva moist and clear, sclerae anicteric] Neck: Unable to assess for JVD due to habitus. No thyromegaly or lymphadenopathy noted. No carotid bruit appreciated Cardiac: [Regular rate and rhythm.] [No murmur rub or gallop.] Lungs: [End expiratory wheezes noted. Continues to require oxygen. Slightly tachypneic. Abdomen: Soft, bowel sounds normoactive. Nontender and nondistended. No abdominal bruit or thrill noted. No masses noted. Musculoskeletal: No fluid collection. Decreased range of motion is noted. Extremities: No clubbing, cyanosis noted. [1+ bilateral lower extremity edema. Upper extremity pulses 2+. Lower extremity pulses 2+. Capillary refill less than 3 seconds. Skin: No unusual lesions or rashes. No skin breakdown appreciated. Neuro: Awake, alert and oriented 3. Moves all extremities well without hemiparesis or paralysis. No essential tremor is appreciated. Result/EKG - Labs CBC & BMP: 02/17/17 04:30 02/18/17 05:05 Lab Results: I have reviewed the past 24 hour labs Labs: Laboratory Results - last 24 hr 02/17/17 02/17/17 02/18/17 15:59 19:57 05:05 Sodium 141 Potassium 5.6 H Chloride 106 Carbon Dioxide 28 Anion Gap 12.6 BUN 48 H Creatinine 3.60 H GFR Calculation 30 BUN/Creatinine Ratio 13.00 Glucose 148 H POC Glucose 222 H 203 H Calculated Osmolality 296.3 Calcium 7.5 L 02/18/17 02/18/17 08:04 11:31 Sodium Potassium Chloride Carbon Dioxide Anion Gap BUN Creatinine GFR Calculation BUN/Creatinine Ratio Glucose POC Glucose 153 H 161 H Calculated Osmolality Calcium - Diagnostic Findings Procedure: Chest x-ray: report reviewed by me, CT - chest: report reviewed by me - EKG EKG results: interpreted by me EKG shows: sinus rhythm
[2017-02-18] MEDS ORDERED: SODIUM POLYSTYRENE SULFATE 15 GM/60 ML BOTTLE PO ONE (13:13)
[2017-02-18 13:48] LABS: Free T4 (Free Thyroxine) 0.91 NG/DL (0.76-1.46); Thyroid Stimulating Hormone 1.12 uIU/ml (0.358-3.74)
[2017-02-18 14:05] LABS: Apearance,Urine Slightly Hazy (Clear); Bacteria,Urine Occasional /HPF (Few); Bilirubin,Urine Negative (Negative); Blood, Urine Small mg/dL (Negative); Glucose,Urine (UA) Negative (Negative); Ketones,Urine Negative (Negative); Mucus,Urine Occasional /LPF (Occasional); Nitrite,Urine Negative (Negative); Protein,Urine Negative; RBC,Urine 1 /HPF (0-4); Urine Color Yellow (Yellow); Urine Specific Gravity 1.015 (1.001-1.035); Urine Urobilinogen < 2.0 EU/DL (0.2-1.0); WBC,Urine 19 /HPF (0-6)
--- NOTE | 2017-02-18 15:34 | Sleep Medicine Consult ---
Assessment and Plan (1) Unspecified sleep apnea Status: Acute Assessment and plan: This patient certainly very likely has sleep apnea based on his obesity and upper airway features. Amazingly, he has minimal symptoms but I do suspect he has significant sleep apnea. He is too unstable medically for HST evaluation and will need follow-up after medically stabilized. He has significant hypoxia despite his treatment for pulmonary embolism and is now having significant bronchospasm. He may benefit from further pulmonary evaluation, particularly if he develops any further respiratory decline given the critical nature of his illness. Current Visit: Yes (2) Diabetes Status: Chronic Assessment and plan: The prevalence rate for obstructive sleep apnea in patients with type 2 diabetes can be as high as 86%. Those patients with moderate to severe obstructive sleep apnea are at a greater risk for diabetic nephropathy and neuropathy. Compliance with CPAP therapy for these patients can lead to improvement in glycemic control and improvement in insulin sensitivity. Current Visit: Yes Qualifiers: Diabetes mellitus type: type 2 Chronic kidney disease stage: stage 3 ( moderate) (3) Morbid obesity Status: Chronic Assessment and plan: Patient encouraged to continue to work on weight loss thru appropriate dieting and exercise. The combination of weight loss and CPAP therapy for obstructive sleep apnea is better than either therapy alone for obstructive sleep apnea. Current Visit: Yes History of Present Illness Chief complaint: Sleep apnea History of present illness: Mr. Gama is a 61 year old male admitted with severe shortness of breath due to large bilateral pulmonary emboli. He has been treated but continues to have significant shortness of breath. He has been found to have evidence of acute cor pulmonale related to bilateral pulmonary emboli. He now is in renal failure. He is having more shortness of breath. He is very obese and does have a history of snoring but is never been told that he stops breathing during his sleep. He usually retires about 10 PM and awakens at 6 AM. He states that he will awaken once or twice a night to urinate but denies any history of being told that he stops breathing during his sleep. He lives alone. He does have significant chronic health issues of hypertension and diabetes and previous DVT. He denies any history of smoking and never having been diagnosed with heart disease or lung disease. Home Medications Medication Instructions Recorded Confirmed Type Aspirin 81 mg PO DAILY 02/16/17 02/16/17 History Furosemide Tab [Lasix Tab] 40 mg PO DAILY 02/16/17 02/16/17 History glipiZIDE [Glipizide] 10 mg PO BID 02/16/17 02/16/17 History Allergies Allergy/AdvReac Type Severity Reaction Status Date / Time No Known Allergies Allergy Verified 02/16/17 08:16 Exam (Pulmonay) H&P - Constitutional Vitals: Period Temp Pulse Resp BP Sys/Perla Pulse Ox Last 24 Hr 97.2 F-98.9 F 79-101 18-30 94-134/57-83 94-100 Exam: He is alert and responsive but appears to be in mild respiratory distress. O2 sats dropped into the 70s when his O2 comes off. He answers questions appropriately. Pupils equal round reactive to light and accommodation. Extraocular movements intact. Oropharynx with a class IV Mallampati exam. Neck is large and supple without adenopathy or thyromegaly. No supraclavicular adenopathy is noted. Chest with coarse wheezes bilaterally with mild rhonchi. Cardiac exam reveals a regular rhythm without murmur or gallop. Abdomen obese nontender without palpable hepatosplenomegaly or mass. Extremities are without significant edema though he does have some mild chronic venous insufficiency changes. Neurologically, he is grossly intact. He moves all extremities with good strength. Medical,Surgical,& Family Hx - Medical History Cardio: History of: Hypertension Psychological: History of: Depression Endocrine: History of: Diabetes Mellitus (NIDDM) Renal: History of: Renal Problems Musculoskeletal: History of: Back/Neck Problems - Surgical History Abdominal Surgeries: Surgical HX of: Hernia Repair Orthopedic Surgeries: Surgical HX of;: Orthopedic Surgery - Family History Family History: Reports;: Family Hypertension, Family Stroke Denies;: Family Cancer, Family Diabetes, Family Heart Disease - Social History Smoking Status: Never smoker Frequency of Alcohol Use: None Type of Drug Use: None Results - Labs CBC & BMP: 02/17/17 04:30 02/18/17 05:05 Lab Results: I have reviewed the past 24 hour labs Labs: Had a normal serum bicarb and TSH on admission. The former goes against significant obesity hypoventilation.
[2017-02-18] MEDS: ONDANSETRON 4 MG/2 ML VIAL IV PRN (17:04)
[2017-02-19] MEDS: ALBUTEROL/IPRATROPIUM 3 ML NEB RESP TX SCH ×5 (02:35→20:00)
[2017-02-19 06:52] LABS: Basophils % 0.1 % (0.0-0.8); Eosinophils # 0.1 10*3/uL (0.0-0.87); Eosinophils % 0.8 % (0.00-10.9); Hematocrit 34.1 VOL% (42.0-52.0); Hemoglobin 10.7 GM/DL (14.0-18.0); Immature Granulocytes % 0.6 %; Immature Granulocytes Absolute 0.05 #; Lymphocytes # 1.2 10*3/uL (1.4-4.0); Lymphocytes % 13.8 % (21.2-54.2); Mean Corpuscular HGB Conc 31.4 GM/DL (32-36); Mean Corpuscular Hemoglobin 33 PG (27-34); Mean Corpuscular Volume 103.6 FL (87-102); Mean Platelet Volume 10.9 FL (9.6-12.0); Monocytes # 0.6 10*3/uL (0.11-0.8); Monocytes % 7.1 % (1.7-12.7); NRBC # 0.02 10*3/uL; Neutrophils # 6.7 10*3/uL (1.4-7.4); Neutrophils % 77.6 % (38.7-73.9); Red Blood Count 3.29 MC/CUMM (3.8-5.5); Red Cell Distribution Width 15.2 % (9.3-17.3); White Blood Count 8.6 T/CUMM (4-12)
[2017-02-19 06:53] LABS: Platelet Count 105 T/CUMM (130-400)
[2017-02-19 07:27] LABS: Calcium 7.9 MG/DL (8.5-10.1); Magnesium 3.3 MG/DL (1.8-2.4); Osmolality,Calculated 295.1 MOS/KG (273-304); Potassium 5.5 MMOL/L (3.5-5.1)
[2017-02-19 07:33] LABS: Risk Ratio 4.19
--- NOTE | 2017-02-19 08:09 | Cardiology Progress Note ---
<Jo Ann Trotter E - Last Filed: 02/19/17 07:59> Assessment and Plan - Time spent with patient Time spent with patient: Greater than 30 minutes (1) Cor pulmonale, acute Status: Acute Assessment and plan: SEE PLAN OF CARE LISTED BELOW Current Visit: Yes (2) Sleep disorder Status: Chronic Assessment and plan: SEE PLAN OF CARE LISTED BELOW Current Visit: Yes (3) Hyperkalemia Status: Acute Assessment and plan: SEE PLAN OF CARE LISTED BELOW Current Visit: Yes (4) Acute on chronic renal failure Status: Acute Assessment and plan: SEE PLAN OF CARE LISTED BELOW Current Visit: Yes Qualifiers: Chronic kidney disease stage: stage 4 (severe) (5) Dyslipidemia Status: Chronic Assessment and plan: SEE PLAN OF CARE LISTED BELOW Current Visit: Yes (6) Tobacco abuse Status: Chronic Assessment and plan: SEE PLAN OF CARE LISTED BELOW Current Visit: Yes (7) Bilateral pulmonary embolism Status: Acute Assessment and plan: SEE PLAN OF CARE LISTED BELOW Current Visit: Yes (8) Deep vein thrombosis (DVT) of popliteal vein of left lower extremity Status: Chronic Assessment and plan: SEE PLAN OF CARE LISTED BELOW Current Visit: Yes (9) Morbid obesity Status: Chronic Assessment and plan: SEE PLAN OF CARE LISTED BELOW Current Visit: Yes (10) Diabetes Status: Chronic Assessment and plan: SEE PLAN OF CARE LISTED BELOW Current Visit: Yes Qualifiers: Diabetes mellitus type: type 2 Chronic kidney disease stage: stage 3 ( moderate) (11) Hypertension Status: Acute Assessment and plan: SEE PLAN OF CARE LISTED BELOW Current Visit: Yes Cardiology - PN: Subj Interval history: SCRAP DROP OPERATOR: DR. CARR PCP: [facility]IDE IN [place], [place] SUMMARY: Mr. Gama, 61WM, with risk factors significant for: hypertension, dyslipidemia, obesity, diabetes, tobaccoism. History of DVT 2006, CKD. Admitted February 16, 2017 with acute shortness of breath, found to have bilateral pulmonary emboli, CHF. He was taken emergently to the cardiac catheterization lab where Dr. Carr performed catheter directed thrombolysis to right and left pulmonary artery (EKOS) for submassive pulmonary emboli. He tolerated the procedure well and without complication and was returned to our CCU in stable condition. Echocardiogram: EF 65%, 2-3+ concentric LVH, RVSP 47 mmHg + RAP. FEBRUARY 18, 2017: Nephrology has been following for acute on chronic renal failure. This morning, creatinine continues to increase at 3.6. Suspect this worsening renal insufficiency is related to his hypotension prior to EKOS. IV hydration continues. Remains short of breath with chronic, end expiratory wheezing. Patient states he is feeling better, breathing better. There was a question as to whether he needed a [place] catheter as he was not making urine yesterday however, overnight, it is reported he has had several large episodes of urination. Remains hyperkalemic, potassium 5.6. Will give 1 dose of Kayexalate and continue to follow his labs daily. He is taking no exogenous potassium replacement. Venous Doppler lower extremity reveals an eccentric, nonocclusive probable chronic DVT of the left popliteal vein. Eliquis continues. Renal ultrasound: No significant abnormality. Patient has never been evaluated for sleep apnea. Certainly, his habitus warrants further investigation as his Mallampati Airway Class III-IV, neck circumference > 44 cm. Will consult sleep medicine for evaluation and possible HST. Will further discuss with Dr. Wheat and await additional recommendations. FEBRUARY 19, 2017: Patient seems to be breathing better, still wheezing. States he is feeling much better and breathing much easier than prior to admission. Reports he always wheezes and has nebulizers at home which help. Continues to receive nebs here as well. Appreciate Dr. Cobb's assistance. Eventually, will need outpatient sleep study. Blood pressure is elevated and today we will add Norvasc for better blood pressure control. Avoiding beta blockers due to his active wheezing, avoiding FLAKO inhibitors do to chronic renal insufficiency and hyperkalemia. Creatinine has improved to 2.1 overnight. IV fluids discontinued this morning. Patient would like to be discharged home. Right groin is soft, free of hematoma or bruit, mild ecchymosis noted. I will further discuss with Dr. Carr and await additional recommendations. ASSESSMENT/PLAN: 1. BILATERAL PULMONARY EMBOLI - status post EKOS, Eliquis continues 2. ACUTE ON CKD - apparently, patient is stage III CKD. Improved overnight. 3. DVT - currently on Eliquis 4. HYPERTENSION - adding Norvasc. 5. DYSLIPIDEMIA - LDL 89. Adding atorvastatin 20 mg orally each evening. 6. MORBID OBESITY - has been counseled regarding the merits of weight loss 7. SLEEP DISORDER - will need outpatient sleep study 8. DIABETES - continue sliding scale, adjust medications accordingly 9. HYPERKALEMIA - Kayexalate 1 dose this morning. As his kidney function improves, I suspect so will his potassium levels 10. TOBACCO USE - greater than 5 minutes was spent discussing the merits of tobacco cessation 11. COR PULMONALE, ACUTE - Suspect acute on chronic diastolic CHF, NYHA Class III. Continue current plan of care. 12. ANEMIA - may be a dilutional component. Continue current plan of care. Exam (Progress Note) - Constitutional Vitals: Period Temp Pulse Resp BP Sys/Perla Pulse Ox Last 24 Hr 98.2 F-99 F 80-95 17-32 96-178/50-111 88-100 Exam: General: [Obese, slightly tachypneic. Cooperative. ] HEENT: [PERRL, normocephalic, atraumatic. Mucous membranes moist. No jaundice noted. Conjunctiva moist and clear, sclerae anicteric] Neck: Unable to assess for JVD due to habitus. No thyromegaly or lymphadenopathy noted. No carotid bruit appreciated Cardiac: [Regular rate and rhythm.] [No murmur rub or gallop.] Lungs: [End expiratory wheezes noted. Continues to require oxygen. Abdomen: Soft, bowel sounds normoactive. Nontender and nondistended. No abdominal bruit or thrill noted. No masses noted. Musculoskeletal: No fluid collection. Decreased range of motion is noted. Extremities: Right groin is soft, free of hematoma or bruit. Mild ecchymosis noted. No clubbing, cyanosis noted. [1+ bilateral lower extremity edema. Upper extremity pulses 2+. Lower extremity pulses 2+. Capillary refill less than 3 seconds. Skin: No unusual lesions or rashes. No skin breakdown appreciated. Neuro: Awake, alert and oriented 3. Moves all extremities well without hemiparesis or paralysis. No essential tremor is appreciated. Result/EKG - Labs CBC & BMP: 02/19/17 06:03 02/19/17 06:03 Lab Results: I have reviewed the past 24 hour labs Labs: Laboratory Results - last 24 hr 02/18/17 02/18/17 02/18/17 05:04 08:04 11:31 WBC RBC Hgb Hct MCV MCH MCHC RDW Plt Count MPV Neut % (Auto) Lymph % (Auto) Cherry % (Auto) Eos % (Auto) Baso % (Auto) Neut # (Auto) Lymph # (Auto) Cherry # (Auto) Eos # (Auto) Baso # (Auto) Immature Gran % Nucleated RBC % Immature Gran # Nucleated RBCs # Immature Plt Fraction Sodium Potassium Chloride Carbon Dioxide Anion Gap BUN Creatinine GFR Calculation BUN/Creatinine Ratio Glucose POC Glucose 153 H 161 H Calculated Osmolality Calcium Magnesium Triglycerides Cholesterol LDL Cholesterol VLDL Cholesterol HDL Cholesterol Heart Disease Risk Ratio Free T4 0.91 TSH 3rd Generation 1.120 Urine Color Urine Appearance Urine pH Ur Specific [place] Urine Protein Urine Glucose (UA) Urine Ketones Urine Blood Urine Nitrate Urine Bilirubin Urine Urobilinogen Urine Leukocytes Urine RBC Urine WBC Urine Bacteria Urine Mucus Ur Culture Indicated? 02/18/17 02/18/17 02/18/17 13:00 16:16 16:19 WBC RBC Hgb Hct MCV MCH MCHC RDW Plt Count MPV Neut % (Auto) Lymph % (Auto) Cherry % (Auto) Eos % (Auto) Baso % (Auto) Neut # (Auto) Lymph # (Auto) Cherry # (Auto) Eos # (Auto) Baso # (Auto) Immature Gran % Nucleated RBC % Immature Gran # Nucleated RBCs # Immature Plt Fraction Sodium Potassium Chloride Carbon Dioxide Anion Gap BUN Creatinine GFR Calculation BUN/Creatinine Ratio Glucose POC Glucose < 20 L* 189 H Calculated Osmolality Calcium Magnesium Triglycerides Cholesterol LDL Cholesterol VLDL Cholesterol HDL Cholesterol Heart Disease Risk Ratio Free T4 TSH 3rd Generation Urine Color Yellow Urine Appearance Slightly hazy Urine pH 5.0 Ur Specific [place] 1.015 Urine Protein Negative Urine Glucose (UA) Negative Urine Ketones Negative Urine Blood Small Urine Nitrate Negative Urine Bilirubin Negative Urine Urobilinogen < 2.0 H Urine Leukocytes Trace Urine RBC 1 Urine WBC 19 Urine Bacteria Occasional Urine Mucus Occasional Ur Culture Indicated? Results to follow 02/18/17 02/19/17 02/19/17 21:19 06:03 06:03 WBC 8.6 D RBC 3.29 L D Hgb 10.7 L D Hct 34.1 L MCV 103.6 H MCH 33 MCHC 31.4 L RDW 15.2 Plt Count 105 L D MPV 10.9 Neut % (Auto) 77.6 H Lymph % (Auto) 13.8 L Cherry % (Auto) 7.1 Eos % (Auto) 0.8 Baso % (Auto) 0.1 Neut # (Auto) 6.7 Lymph # (Auto) 1.2 L Cherry # (Auto) 0.6 Eos # (Auto) 0.1 Baso # (Auto) 0.0 Immature Gran % 0.6 Nucleated RBC % 0.2 Immature Gran # 0.05 Nucleated RBCs # 0.02 Immature Plt Fraction 0.0 Sodium 142 Potassium 5.5 H Chloride 109 H Carbon Dioxide 26 Anion Gap 12.5 BUN 43 H Creatinine 2.10 H GFR Calculation 58 BUN/Creatinine Ratio 20.00 Glucose 134 H POC Glucose 177 H Calculated Osmolality 295.1 Calcium 7.9 L Magnesium 3.3 H Triglycerides Cholesterol LDL Cholesterol VLDL Cholesterol HDL Cholesterol Heart Disease Risk Ratio Free T4 TSH 3rd Generation Urine Color Urine Appearance Urine pH Ur Specific [place] Urine Protein Urine Glucose (UA) Urine Ketones Urine Blood Urine Nitrate Urine Bilirubin Urine Urobilinogen Urine Leukocytes Urine RBC Urine WBC Urine Bacteria Urine Mucus Ur Culture Indicated? 02/19/17 02/19/17 06:03 07:23 WBC RBC Hgb Hct MCV MCH MCHC RDW Plt Count MPV Neut % (Auto) Lymph % (Auto) Cherry % (Auto) Eos % (Auto) Baso % (Auto) Neut # (Auto) Lymph # (Auto) Cherry # (Auto) Eos # (Auto) Baso # (Auto) Immature Gran % Nucleated RBC % Immature Gran # Nucleated RBCs # Immature Plt Fraction Sodium Potassium Chloride Carbon Dioxide Anion Gap BUN Creatinine GFR Calculation BUN/Creatinine Ratio Glucose POC Glucose 150 H Calculated Osmolality Calcium Magnesium Triglycerides 130 Cholesterol 155 LDL Cholesterol 89.0 VLDL Cholesterol 26.0 HDL Cholesterol 37 L Heart Disease Risk Ratio 4.19 Free T4 TSH 3rd Generation Urine Color Urine Appearance Urine pH Ur Specific [place] Urine Protein Urine Glucose (UA) Urine Ketones Urine Blood Urine Nitrate Urine Bilirubin Urine Urobilinogen Urine Leukocytes Urine RBC Urine WBC Urine Bacteria Urine Mucus Ur Culture Indicated? - EKG EKG results: interpreted by sc EKG shows: sinus rhythm <Kolby Carr - Last Filed: 02/19/17 16:46> Assessment and Plan (1) Cor pulmonale, acute Status: Deleted Current Visit: Yes (2) Diabetes Status: Chronic Current Visit: Yes Qualifiers: Diabetes mellitus type: type 2 Chronic kidney disease stage: stage 3 ( moderate) (3) DVT (deep venous thrombosis) Status: Acute Current Visit: Yes (4) Bilateral pulmonary embolism Status: Acute Current Visit: Yes Exam (Progress Note) - Constitutional Vitals: Period Temp Pulse Resp BP Sys/Perla Pulse Ox Last 24 Hr 97.9 F-98.7 F 73-95 13-32 96-181/50-111 77-100 Result/EKG - Labs CBC & BMP: 02/19/17 06:03 02/19/17 06:03 Labs: Laboratory Results - last 24 hr 02/18/17 02/19/17 02/19/17 21:19 06:03 06:03 WBC 8.6 D RBC 3.29 L D Hgb 10.7 L D Hct 34.1 L MCV 103.6 H MCH 33 MCHC 31.4 L RDW 15.2 Plt Count 105 L D MPV 10.9 Neut % (Auto) 77.6 H Lymph % (Auto) 13.8 L Cherry % (Auto) 7.1 Eos % (Auto) 0.8 Baso % (Auto) 0.1 Neut # (Auto) 6.7 Lymph # (Auto) 1.2 L Cherry # (Auto) 0.6 Eos # (Auto) 0.1 Baso # (Auto) 0.0 Immature Gran % 0.6 Nucleated RBC % 0.2 Immature Gran # 0.05 Nucleated RBCs # 0.02 Immature Plt Fraction 0.0 Sodium 142 Potassium 5.5 H Chloride 109 H Carbon Dioxide 26 Anion Gap 12.5 BUN 43 H Creatinine 2.10 H GFR Calculation 58 BUN/Creatinine Ratio 20.00 Glucose 134 H POC Glucose 177 H Calculated Osmolality 295.1 Calcium 7.9 L Magnesium 3.3 H Triglycerides Cholesterol LDL Cholesterol VLDL Cholesterol HDL Cholesterol Heart Disease Risk Ratio 02/19/17 02/19/17 02/19/17 06:03 07:23 11:36 WBC RBC Hgb Hct MCV MCH MCHC RDW Plt Count MPV Neut % (Auto) Lymph % (Auto) Cherry % (Auto) Eos % (Auto) Baso % (Auto) Neut # (Auto) Lymph # (Auto) Cherry # (Auto) Eos # (Auto) Baso # (Auto) Immature Gran % Nucleated RBC % Immature Gran # Nucleated RBCs # Immature Plt Fraction Sodium Potassium Chloride Carbon Dioxide Anion Gap BUN Creatinine GFR Calculation BUN/Creatinine Ratio Glucose POC Glucose 150 H 141 H Calculated Osmolality Calcium Magnesium Triglycerides 130 Cholesterol 155 LDL Cholesterol 89.0 VLDL Cholesterol 26.0 HDL Cholesterol 37 L Heart Disease Risk Ratio 4.19 02/19/17 16:03 WBC RBC Hgb Hct MCV MCH MCHC RDW Plt Count MPV Neut % (Auto) Lymph % (Auto) Cherry % (Auto) Eos % (Auto) Baso % (Auto) Neut # (Auto) Lymph # (Auto) Cherry # (Auto) Eos # (Auto) Baso # (Auto) Immature Gran % Nucleated RBC % Immature Gran # Nucleated RBCs # Immature Plt Fraction Sodium Potassium Chloride Carbon Dioxide Anion Gap BUN Creatinine GFR Calculation BUN/Creatinine Ratio Glucose POC Glucose 145 H Calculated Osmolality Calcium Magnesium Triglycerides Cholesterol LDL Cholesterol VLDL Cholesterol HDL Cholesterol Heart Disease Risk Ratio
[2017-02-19] MEDS ORDERED: SODIUM POLYSTYRENE SULFATE 15 GM/60 ML BOTTLE PO ONE (08:12)
[2017-02-19] MEDS: INSULIN REGULAR 100 UNIT/ML SUBCUT SCH ×5 (08:49→21:37)
[2017-02-19] MEDS: SODIUM CHLORIDE 0.9% 1,000 ML IV SCH (08:53)
[2017-02-19] MEDS ORDERED: FUROSEMIDE 20 MG/2 ML VIAL IV ONE (09:17)
--- NOTE | 2017-02-19 09:47 | Nephrology Progress Note ---
Nephrology - PN: Subj Interval history: Patient states he is breathing okay. Review of systems GI he complains of some nausea and sickness in his stomach. Physical exam general patient is chronically ill-appearing, heart is regular rate and rhythm, lungs reveal some inspiratory wheeze on the left side clear on the right, abdomen is soft with positive bowel sounds, extremities reveal no pitting edema Assessment/plan 1. Acute renal failure-this patient's creatinine is improved to 2.1 mg/dL from around 3.6 yesterday, I am going to stop his Mucomyst at this point 2. Pulmonary embolus 3. Morbid obesity 4. Diabetes mellitus 5. Hypertension Exam (PN)-Nephrology - Vital Signs Vital signs: Period Temp Pulse Resp BP Sys/Perla Pulse Ox Last 24 Hr 98.2 F-99 F 80-95 17-32 96-181/50-111 88-100 - Lab 02/19/17 06:03 02/19/17 06:03 Most recent lab results ABG pH 7.389 (7.35-7.45) 02/16/17 08:13 ABG pCO2 41.8 MM HG (35-48) 02/16/17 08:13 ABG pO2 89.2 MM HG (80-95) 02/16/17 08:13 ABG HCO3 24.4 MMOL/L (20-26) 02/16/17 08:13 ABG O2 Saturation 96.2 % (95-100) 02/16/17 08:13 Calcium 7.9 MG/DL (8.5-10.1) L 02/19/17 06:03 Magnesium 3.3 MG/DL (1.8-2.4) H 02/19/17 06:03
[2017-02-19] MEDS: amLODIPine 5 MG TABLET PO SCH (10:27)
[2017-02-19] MEDS: APIXABAN 5 MG TABLET PO SCH ×2 (10:27→21:37)
[2017-02-19] MEDS: CALCIUM CARBONATE CHEW 500 MG TABLET PO SCH ×3 (10:27→17:03)
[2017-02-19] MEDS: PANTOPRAZOLE 40 MG TABLET PO SCH (10:28)
[2017-02-19] MEDS: ACETYLCYSTEINE 600 MG CAPSULE PO SCH (10:29)
--- NOTE | 2017-02-19 12:00 | Sleep Medicine Progress Note ---
Assessment and Plan (1) Unspecified sleep apnea Status: Acute Assessment and plan: This patient remains medically unstable to evaluate for sleep apnea. He does need to improve significantly for home sleep testing to be done and ideally I think with his comorbidities, he would be best served for outpatient polysomnography. He does not appear to be ready for discharge yet from a pulmonary standpoint. He still desats into the 70s and has active wheezing on exam. I would recommend pulmonary evaluation. Current Visit: Yes (2) Diabetes Status: Chronic Current Visit: Yes Qualifiers: Diabetes mellitus type: type 2 Chronic kidney disease stage: stage 3 ( moderate) (3) Morbid obesity Status: Chronic Current Visit: Yes Sleep Medicine Subjective Interval history: Patient continues to have issues with his breathing. He desats into the 70s once oxygen is off. He does look more comfortable today and acknowledges that. Exam (Progress Note) - Constitutional Vitals: Period Temp Pulse Resp BP Sys/Perla Pulse Ox Last 24 Hr 98.2 F-99 F 80-95 17-32 96-181/50-111 77-100 Exam: He is alert and responsive in no acute distress. Pupils equal round reactive to light and accommodation. Extraocular movements intact. Oropharynx unchanged. Neck large supple without adenopathy. Chest with wheezes bilaterally. Cardiac exam reveals a regular rhythm without murmur or gallop. Abdomen obese nontender extremities without increased edema. Neurologically, he is grossly intact. Results - Labs CBC & BMP: 02/19/17 06:03 02/19/17 06:03 Lab Results: I have reviewed the past 24 hour labs
[2017-02-19] MEDS ORDERED: CARVEDILOL 3.125 MG TABLET PO SCH (14:00)
[2017-02-19] MEDS: hydrALAZINE 10 MG TABLET PO SCH ×2 (15:50→21:37)
--- NOTE | 2017-02-19 15:53 | Pulmonology Consult Note ---
History of Present Illness Chief complaint: Acute bronchitis and bronchospasm. Hypoxemia History of present illness: Mr. Gama is a 61 year old white over 400 pound male whom I been asked to see in pulmonary consultation. This patient was admitted to the hospital 02/16/2017 with acute pulmonary emboli. These were treated byekos. Since that time the patient has developed increased shortness of breath and hypoxemia requiring supplemental oxygen. Any movement exacerbates his hypoxemia. The patient complains of a cough. He hears himself wheeze. He has sputum which is hard to mobilize. He denies gastroesophageal reflux and he denies solid dysphasia. The remainder the patient's review of systems is negative. Allergies none. Home medicines. See below Active medicines. See below Past history. Morbid obesity. Bronchospastic disease. DVTs in 2005 after surgery for incarcerated inguinal hernia. High blood pressure. Diabetes mellitus per Social history patient never smoked. He says he does not use alcohol or drugs. 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 He complains of severe degenerative arthritis in his knees. He says his right knee is [id number] and needs to be replaced. Family history. Positive for diabetes and high blood pressure. Chest x-ray. Last on 02/16/2017. Indistinctness of the right hemidiaphragm. Was interpreted as infiltrate and/or atelectasis. This cannot be pulled up on the computer screen so I cannot review it myself. CT of the chest. 02/16/2017. Acute pulmonary emboli in both mainstem arteries. Evidence of right heart strain. Clusters of nodules in the lingula, 20 x 14 mm in size. Three-month follow-up was recommended. Microbiology. Cultures of the nares are negative. Lab. White count is 8600 with 78 segs 14 lymphs. H&H 10.7/34.1. Platelets are 105,000. Sodium is 142. Potassium is 5.5. Admit creatinine was 1.8 and mervat to 3.60. This is now dropped to 2.10 with a BUN of 43. Urine shows no evidence of infection. Liver function tests to been normal. Admit troponin was 0.906. Admit nitrated peptide was 155. Total protein and albumin are low at 6.2 and 3.1 respectively. Physical exam. Psychiatric. Oriented 3. Fair historian General. Mild distress lying flat in bed. Vital signs. See below. Afebrile Face is symmetrical. No swelling of the lips or tongue. Neck is short and thick with no meningismus. Lymphatics. No submandibular cervical supraclavicular or epitrochlear adenopathy. Chest. Marked tracheal and large airway wheeze with associated congestion. High-pitched peripheral wheezes heard after the end of expiration. Heart. Regular. Abdomen. Massively obese. No organs can be palpated. Some bowel sounds were heard. and rectal. Deferred Lower extremities. Chronic venous stasis changes with overlying brownish discoloration. Musculoskeletal. Degenerative changes of both knees. Worse on the right Neurologic. Cranial nerves are intact. Patient moves all 4 extremities. Sensory exam was not done in gait was not tested. The remainder of the physical exam is negative Impression. 1. Deep venous thrombophlebitis with acute bilateral pulmonary emboli 2. Acute bronchitis with bronchospasm. 3. Bronchospastic disease 4. Morbid obesity 5. High blood pressure 6. Diabetes mellitus 7. See past history 8. Acute renal failure resolving Plan. 1. Continue inhalation therapy and add Acapella 2. Mucinex 600 p.o. twice daily 3. IV Aminophyllin. 250 mg loading dose over 3 hours and then 20 mg/h. 4. Daily theophylline level 5. Singulair 10 mg twice a day 6. Supplemental oxygen 7. Sputum for Gram stain culture and sensitivity 8. IV Levaquin and IV Fortaz at renal dosages 9. Chest x-ray. 10. See orders Home Medications Medication Instructions Recorded Confirmed Type Aspirin 81 mg PO DAILY 02/16/17 02/16/17 History Furosemide Tab [Lasix Tab] 40 mg PO DAILY 02/16/17 02/16/17 History glipiZIDE [Glipizide] 10 mg PO BID 02/16/17 02/16/17 History Allergies Allergy/AdvReac Type Severity Reaction Status Date / Time No Known Allergies Allergy Verified 02/16/17 08:16 Exam (Pulmonay) H&P - Constitutional Vitals: Period Temp Pulse Resp BP Sys/Perla Pulse Ox Last 24 Hr 97.9 F-98.7 F 73-95 14-32 96-181/50-111 77-100 Medical,Surgical,& Family Hx - Medical History Cardio: History of: Hypertension Psychological: History of: Depression Endocrine: History of: Diabetes Mellitus (NIDDM) Renal: History of: Renal Problems Musculoskeletal: History of: Back/Neck Problems - Surgical History Abdominal Surgeries: Surgical HX of: Hernia Repair Orthopedic Surgeries: Surgical HX of;: Orthopedic Surgery - Family History Family History: Reports;: Family Hypertension, Family Stroke Denies;: Family Cancer, Family Diabetes, Family Heart Disease - Social History Smoking Status: Never smoker Frequency of Alcohol Use: None Type of Drug Use: None Results - Labs CBC & BMP: 02/19/17 06:03 02/19/17 06:03
--- NOTE | 2017-02-19 16:22 | XRay Report ---
XR chest 1V portable Indication: Shortness of breath. PE diagnosed 3 days ago. Chest one view: Comparison 02/16/2017 shows worsening pulmonary hypoinflation with progressive atelectasis. Borderline cardiomegaly is stable. No new infiltrates. Pleural spaces are clear. Morbid obesity again demonstrated. Impression: Worsening pulmonary hypoinflation with vascular crowding and atelectasis. PROCEDURE INTERPRETED AT [facility] DEPARTMENT OF RADIOLOGY Final Report Signed by: Rod John M.D.
[2017-02-19] MEDS ORDERED: AMINOPHYLLINE 250 MG in SODIUM CHLORIDE 0.9% 100 ML IV ONE (16:30)
[2017-02-19] MEDS: methylPREDNISolone SOD SUC 125 MG/2 ML VIAL IV SCH (17:03)
[2017-02-19] MEDS: LEVOFLOXACIN INJ 250 MG in PREMIX 1 EACH IV SCH (17:04)
[2017-02-19] MEDS: cefTAZidime 500 MG in SODIUM CHLORIDE 0.9% 100 ML IV SCH ×2 (18:37→23:52)
[2017-02-19] MEDS: MONTELUKAST 10 MG TABLET PO SCH (21:36)
[2017-02-19] MEDS: AMINOPHYLLINE 500 MG in SODIUM CHLORIDE 0.9% 480 ML IV SCH (21:36)
[2017-02-19] MEDS: ISOSORBIDE DINITRATE 20 MG TABLET PO SCH (21:36)
[2017-02-19] MEDS: ATORVASTATIN 20 MG TABLET PO SCH (21:37)
[2017-02-19] MEDS: CARVEDILOL 6.25 MG TABLET PO SCH (21:37)
[2017-02-20] MEDS: ALBUTEROL/IPRATROPIUM 3 ML NEB RESP TX SCH ×6 (00:29→19:06)
[2017-02-20] MEDS: methylPREDNISolone SOD SUC 125 MG/2 ML VIAL IV SCH ×4 (03:29→23:35)
[2017-02-20 05:53] LABS: Hemoglobin 10.1 GM/DL (14.0-18.0); Immature Granulocytes % 0.4 %; Immature Granulocytes Absolute 0.02 #; Lymphocytes # 0.5 10*3/uL (1.4-4.0); Lymphocytes % 9.4 % (21.2-54.2); Mean Corpuscular HGB Conc 32.6 GM/DL (32-36); Mean Corpuscular Hemoglobin 33 PG (27-34); Mean Corpuscular Volume 100.6 FL (87-102); Mean Platelet Volume 10.1 FL (9.6-12.0); Monocytes # 0.1 10*3/uL (0.11-0.8); Monocytes % 1.8 % (1.7-12.7); NRBC # 0.04 10*3/uL; Neutrophils # 4.5 10*3/uL (1.4-7.4); Neutrophils % 88.4 % (38.7-73.9); Platelet Count 121 T/CUMM (130-400); Red Blood Count 3.08 MC/CUMM (3.8-5.5); White Blood Count 5.1 T/CUMM (4-12)
[2017-02-20 06:25] LABS: Magnesium 2.7 MG/DL (1.8-2.4); Osmolality,Calculated 292.3 MOS/KG (273-304); Potassium 4.9 MMOL/L (3.5-5.1)
[2017-02-20 06:27] LABS: Osmolality,Calculated 294.1 MOS/KG (273-304); Potassium 4.9 MMOL/L (3.5-5.1)
--- NOTE | 2017-02-20 09:01 | Cardiology Progress Note ---
Assessment and Plan (1) Cor pulmonale, acute Status: Deleted Assessment and plan: 1. 61-year-old BMI 62.5 WM oral tobacco user with hypertension, NIDDM, DVT in 2006 after surgery for incarcerated inguinal hernia, now presents with 2 days of progressive now severe dyspnea on exertion with bilateral proximal pulmonary emboli and acute cor pulmonale with severe right ventricular enlargement and elevated troponin consistent with submassive pulmonary embolism. 2. He is received Lovenox already which is appropriate 3. Discussed with him the risks and benefits of catheter directed thrombolysis versus conservative therapy with anticoagulation. He is agreeable to intervention for quicker resolution of his symptoms. We will plan this today. I discussed with the patient the risks and benefits of catheter directed thrombolysis for submassive pulmonary emboli including but not limited to: , stroke, heart attack, vascular damage, reaction to medicine, bleeding requiring blood transfusion, failure of the procedure, and the possible need for planned or emergency surgery. I have answered all the patient's questions regarding the procedure, and the patient is agreeable to proceed. February 17 2017: 1. Mr. Gama's dyspnea has improved significantly, but he is a bit hypotensive with no urine output since midnight. This is complicated by the fact that his penis is not visible in his retracted related to his morbid obesity. His blood pressure response normal saline bolus and will continue normal saline infusion. I suspect is related to right heart failure from his acute cor pulmonale. 2. Oozing in his right groin site (had a 12 Persian venous sheath in it); this seems to have slowed significantly but will check ultrasound and place a fresh pressure dressing to better assess it. 3. Consult nephrology given his creatinine is now well over 3; he did not receive any dye so I suspect that this is related to the hypotension from acute cor pulmonale. Hopefully respond to normal saline boluses. 4. We will proceed with Eliquis at 9 AM and less ultrasound shows something particularly worrisome at the right groin 5. Continue to follow closely in the CCU 6. We will defer to nephrology whether he needs Felton catheter or urology evaluation? February 20, 2017: 1. Mr. Gama continues to do well with regard to no shortness of breath although he has some continued wheezing; reports he cannot sleep after getting steroids last night hopefully this can be tapered, particular given his obesity. 2. Hematocrit relatively stable with slight drop; decrease Eliquis to 5 mg twice daily with plans to treat at least 6 months, possibly for life given his history of DVT after knee surgery in 2005. 3. Consult PT to increase activity; he feels good but has not been out of bed since admission/has not ambulated. He lives alone so also asked nursing to try to arrange for home health. He does have a sister that lives nearby. 4. Acute cor pulmonale from his submassive pulmonary emboli caused hypotension and subsequent acute renal failure which is resolving; given his hypertension add low-dose FLAKO inhibitor watch creatinine and potassium will check in the morning Current Visit: Yes (2) Diabetes Status: Chronic Current Visit: Yes Qualifiers: Diabetes mellitus type: type 2 Chronic kidney disease stage: stage 3 ( moderate) (3) DVT (deep venous thrombosis) Status: Acute Current Visit: Yes (4) Bilateral pulmonary embolism Status: Acute Current Visit: Yes Cardiology - PN: Subj Interval history: Mr. Rodriguez is feeling better and is not having any shortness of breath despite his chronic wheezing. He said he cannot sleep after he got steroids. He is not having chest discomfort. He has not gotten up to ambulate yet. Exam (Progress Note) - Constitutional Vitals: Period Temp Pulse Resp BP Sys/Perla Pulse Ox Last 24 Hr 97 F-98.8 F 73-97 13-24 135-194/69-93 77-100 General appearance: no acute distress, morbidly obese - Head Head exam: Present: normal inspection, normocephalic, atraumatic - Neck Neck exam: Present: normal inspection - Respiratory Respiratory exam: Present: wheezes. Absent: rales, stridor - Cardiovascular Cardiovascular exam: Present: regular rate and rhythm. Absent: diastolic murmur , systolic murmur - GI/Abdominal GI/Abdominal exam: Present: soft. Absent: tenderness - Extremities Exam Extremities exam: Present: edema - Neurological Exam Neurological exam: Present: oriented X3, abnormal gait - Psychiatric Psychiatric exam: Present: normal affect, normal mood Result/EKG - Labs CBC & BMP: 02/20/17 05:42 02/20/17 05:42 Labs: Laboratory Results - last 24 hr 02/19/17 02/19/17 02/19/17 11:36 16:03 18:28 WBC RBC Hgb Hct MCV MCH MCHC RDW Plt Count MPV Neut % (Auto) Lymph % (Auto) Tama % (Auto) Eos % (Auto) Baso % (Auto) Neut # (Auto) Lymph # (Auto) Tama # (Auto) Eos # (Auto) Baso # (Auto) Immature Gran % Nucleated RBC % Immature Gran # Nucleated RBCs # Immature Plt Fraction Sodium Potassium Chloride Carbon Dioxide Anion Gap BUN Creatinine GFR Calculation BUN/Creatinine Ratio Glucose POC Glucose 141 H 145 H 163 H Calculated Osmolality Calcium Magnesium Theophylline 02/19/17 02/20/17 02/20/17 21:35 05:42 05:42 WBC 5.1 D RBC 3.08 L Hgb 10.1 L Hct 31.0 L MCV 100.6 MCH 33 MCHC 32.6 RDW 15.0 Plt Count 121 L MPV 10.1 Neut % (Auto) 88.4 H Lymph % (Auto) 9.4 L Tama % (Auto) 1.8 Eos % (Auto) 0.0 Baso % (Auto) 0.0 Neut # (Auto) 4.5 Lymph # (Auto) 0.5 L Tama # (Auto) 0.1 L Eos # (Auto) 0.0 Baso # (Auto) 0.0 Immature Gran % 0.4 Nucleated RBC % 0.8 Immature Gran # 0.02 Nucleated RBCs # 0.04 Immature Plt Fraction 0.0 Sodium 142 Potassium 4.9 Chloride 105 Carbon Dioxide 30 Anion Gap 11.9 BUN 32 H D Creatinine 1.60 H GFR Calculation 80 BUN/Creatinine Ratio 20.00 Glucose 189 H POC Glucose 203 H Calculated Osmolality 294.1 Calcium 8.0 L Magnesium Theophylline 02/20/17 02/20/17 05:42 05:42 WBC RBC Hgb Hct MCV MCH MCHC RDW Plt Count MPV Neut % (Auto) Lymph % (Auto) Tama % (Auto) Eos % (Auto) Baso % (Auto) Neut # (Auto) Lymph # (Auto) Tama # (Auto) Eos # (Auto) Baso # (Auto) Immature Gran % Nucleated RBC % Immature Gran # Nucleated RBCs # Immature Plt Fraction Sodium 141 Potassium 4.9 Chloride 105 Carbon Dioxide 30 Anion Gap 10.9 BUN 33 H Creatinine 1.50 H GFR Calculation 86 BUN/Creatinine Ratio 22.00 H Glucose 192 H POC Glucose Calculated Osmolality 292.3 Calcium 8.0 L Magnesium 2.7 H Theophylline 4.1 L
[2017-02-20] MEDS: INSULIN REGULAR 100 UNIT/ML SUBCUT SCH ×4 (09:16→21:47)
[2017-02-20] MEDS: ISOSORBIDE DINITRATE 20 MG TABLET PO SCH ×2 (09:21→20:36)
[2017-02-20] MEDS: amLODIPine 5 MG TABLET PO SCH (09:21)
[2017-02-20] MEDS: CALCIUM CARBONATE CHEW 500 MG TABLET PO SCH ×3 (09:21→16:13)
[2017-02-20] MEDS: APIXABAN 2.5 MG TABLET PO SCH ×2 (09:21→20:36)
[2017-02-20] MEDS: PANTOPRAZOLE 40 MG TABLET PO SCH (09:22)
[2017-02-20] MEDS: MONTELUKAST 10 MG TABLET PO SCH ×2 (09:22→20:36)
[2017-02-20] MEDS: cefTAZidime 500 MG in SODIUM CHLORIDE 0.9% 100 ML IV SCH ×3 (09:22→23:37)
[2017-02-20] MEDS: VALSARTAN 80 MG TABLET PO SCH ×2 (09:22→20:36)
[2017-02-20] MEDS: hydrALAZINE 10 MG TABLET PO SCH ×3 (09:22→20:35)
[2017-02-20] MEDS: CARVEDILOL 6.25 MG TABLET PO SCH ×2 (09:24→20:35)
--- NOTE | 2017-02-20 14:35 | Nephrology Progress Note ---
Nephrology - PN: Subj Interval history: Patient denies shortness of breath. Review of systems GI denies nausea or vomiting Physical exam general patient chronically ill-appearing but in no acute distress , he has no pitting edema Assessment/plan 1. Acute renal failure-patient's creatinine is improved to 1.5 mg/dL 2. Morbid obesity 3. Pulmonary embolus continue anticoagulation 4. Hypertension continue present antihypertensives Exam (PN)-Nephrology - Vital Signs Vital signs: Period Temp Pulse Resp BP Sys/Perla Pulse Ox Last 24 Hr 97 F-98.8 F 73-98 13-22 135-194/65-93 89-100 - Lab 02/20/17 05:42 02/20/17 05:42 Most recent lab results ABG pH 7.389 (7.35-7.45) 02/16/17 08:13 ABG pCO2 41.8 MM HG (35-48) 02/16/17 08:13 ABG pO2 89.2 MM HG (80-95) 02/16/17 08:13 ABG HCO3 24.4 MMOL/L (20-26) 02/16/17 08:13 ABG O2 Saturation 96.2 % (95-100) 02/16/17 08:13 Calcium 8.0 MG/DL (8.5-10.1) L 02/20/17 05:42 Magnesium 2.7 MG/DL (1.8-2.4) H 02/20/17 05:42
--- NOTE | 2017-02-20 16:59 | Pulmonology Progress Note ---
Pulmonary - PN: Subj Interval history: Patient admitted for acute PE, treated with EKOS. Clinically doing better. Denies dyspnea. Exam (Progress Note) - Constitutional Vitals: Period Temp Pulse Resp BP Sys/Perla Pulse Ox Last 24 Hr 97 F-98.8 F 75-98 16-22 135-194/65-93 89-99 General appearance: morbidly obese - Respiratory Respiratory exam: Present: clear to auscultation bilaterally. Absent: wheezes - Cardiovascular Cardiovascular exam: Present: regular rate and rhythm - Skin Skin exam: Present: other (large area of ecchymosis on scrotum) Results - Labs CBC & BMP: 02/20/17 05:42 02/20/17 05:42 Lab Results: I have reviewed the past 24 hour labs Assessment and Plan (1) Dyspnea Status: Acute Assessment and plan: Patient denies any history of smoking, asthma or other allergic syndromes. Lower suspicion for COPD or asthma a source of reported wheezing. His audible wheezing is more likely to be from upper airway obstruction from his weight. Dyspnea is easily explained by the PE coupled with morbid obesity. Could consider stopping theophylline, especially if patient is being discharged this weekend. Otherwise, Dr Kendrick will assume care on Wednesday and can determine what further outpatient workup needs to be done to confirm this diagnosis Current Visit: Yes (2) Bilateral pulmonary embolism Status: Acute Assessment and plan: Per report, this is patients second embolic event. If that is the case, would need life long anticoagulation (barring any absolute CI) Current Visit: Yes
[2017-02-20] MEDS: LEVOFLOXACIN INJ 250 MG in PREMIX 1 EACH IV SCH (17:42)
[2017-02-20] MEDS: ATORVASTATIN 20 MG TABLET PO SCH (20:36)
[2017-02-20] MEDS: AMINOPHYLLINE 500 MG in SODIUM CHLORIDE 0.9% 480 ML IV SCH (21:32)
[2017-02-21] MEDS: ALBUTEROL/IPRATROPIUM 3 ML NEB RESP TX SCH ×7 (00:06→23:51)
[2017-02-21 05:43] LABS: Immature Granulocytes % 0.9 %; Immature Granulocytes Absolute 0.07 #; Lymphocytes # 0.5 10*3/uL (1.4-4.0); Lymphocytes % 6.4 % (21.2-54.2); Mean Corpuscular HGB Conc 31.4 GM/DL (32-36); Mean Corpuscular Hemoglobin 32 PG (27-34); Mean Platelet Volume 10.1 FL (9.6-12.0); Monocytes # 0.3 10*3/uL (0.11-0.8); Monocytes % 3.3 % (1.7-12.7); NRBC # 0.03 10*3/uL; Neutrophils # 7.2 10*3/uL (1.4-7.4); Neutrophils % 89.4 % (38.7-73.9); Platelet Count 159 T/CUMM (130-400); Red Blood Count 3.43 MC/CUMM (3.8-5.5); Red Cell Distribution Width 15.3 % (9.3-17.3); White Blood Count 8.1 T/CUMM (4-12)
[2017-02-21 06:11] LABS: Calcium 8.2 MG/DL (8.5-10.1); Magnesium 2.7 MG/DL (1.8-2.4); Osmolality,Calculated 295.3 MOS/KG (273-304); Potassium 5.2 MMOL/L (3.5-5.1)
[2017-02-21] MEDS: cefTAZidime 500 MG in SODIUM CHLORIDE 0.9% 100 ML IV SCH (08:42)
[2017-02-21] MEDS: hydrALAZINE 10 MG TABLET PO SCH ×3 (08:42→20:26)
[2017-02-21] MEDS: CALCIUM CARBONATE CHEW 500 MG TABLET PO SCH ×3 (08:42→17:45)
[2017-02-21] MEDS: INSULIN REGULAR 100 UNIT/ML SUBCUT SCH ×4 (08:42→20:52)
[2017-02-21] MEDS: APIXABAN 2.5 MG TABLET PO SCH (08:42)
[2017-02-21] MEDS: MONTELUKAST 10 MG TABLET PO SCH ×2 (08:43→20:27)
[2017-02-21] MEDS: VALSARTAN 80 MG TABLET PO SCH ×2 (08:43→20:26)
[2017-02-21] MEDS: CARVEDILOL 6.25 MG TABLET PO SCH ×2 (08:43→20:26)
[2017-02-21] MEDS: ISOSORBIDE DINITRATE 20 MG TABLET PO SCH ×2 (08:43→20:27)
[2017-02-21] MEDS: amLODIPine 5 MG TABLET PO SCH (08:43)
[2017-02-21] MEDS: methylPREDNISolone SOD SUC 125 MG/2 ML VIAL IV SCH (08:43)
[2017-02-21] MEDS: PANTOPRAZOLE 40 MG TABLET PO SCH (08:43)
[2017-02-21] MEDS ORDERED: APIXABAN 5 MG TABLET PO SCH (09:00)
--- NOTE | 2017-02-21 10:24 | Pulmonology Progress Note ---
Pulmonary - PN: Subj Interval history: Patient clinically doing better. Was up in a chair this morning. Plan is for DC tomorrow morning Exam (Progress Note) - Constitutional Vitals: Period Temp Pulse Resp BP Sys/Perla Pulse Ox Last 24 Hr 98.1 F-98.9 F 77-98 18-22 131-157/55-91 90-99 General appearance: no acute distress, morbidly obese - Head Head exam: Present: normal inspection - Eye Eye exam: Present: EOMI - Neck Neck exam: Present: normal inspection - Respiratory Respiratory exam: Present: clear to auscultation bilaterally - Cardiovascular Cardiovascular exam: Present: regular rate and rhythm Results - Labs CBC & BMP: 02/21/17 05:29 02/21/17 05:29 Lab Results: I have reviewed the past 24 hour labs Assessment and Plan (1) Dyspnea Status: Acute Assessment and plan: Patient with improved pulmonary symptoms after treatment of PE. Planning for DC tomorrow. Will switch to PO antibiotics and prednisone. Given renal function would treat as CrCl <10 with 500mg PO every other day. Tomorrow will be 5 days of antibiotics which should be sufficient (no evidence of pneumonia). Would do 2 more days of steroids. Additionally, will DC theophylline gtt today. Current Visit: Yes (2) Bilateral pulmonary embolism Status: Acute Assessment and plan: Per report, this is patients second embolic event. If that is the case, would need life long anticoagulation (barring any absolute CI) Current Visit: Yes
[2017-02-21] MEDS ORDERED: APIXABAN 2.5 MG TABLET PO ONE (10:43)
--- NOTE | 2017-02-21 10:59 | EKG Report ---
Stationary ECG Study [facility] Test Date: 02/21/2017 8:15:46 AM Pat Name: ALYX SHELTON Department: Room: 530 Gender: M Planning Consultant: JANEY : 1955 Requested by: Kolby Cornelius Order Number: [id number] Reading MD: NUNU FERNÁNDEZ Intervals [place] Rate: 71 P: 77 IA: 164 QRS: -55 QRSD: 116 T: 62 QT: 352 QTc: 375 Interpretive Statements SINUS RHYTHM LEFT ANTERIOR FASCICULAR BLOCK POSSIBLE ANTERIOR MYOCARDIAL INFARCTION, OLD Electronically Signed On 02-22-17 06:52:20 CDT by NUNU FERNÁNDEZ [email or web address]
--- NOTE | 2017-02-21 14:35 | Nephrology Progress Note ---
Nephrology - PN: Subj Interval history: Patient denies shortness of breath. Review of systems GI denies nausea or vomiting Physical exam general patient is in no acute distress, he has no pitting edema Assessment/plan 1. Acute renal failure-patient's creatinines around 1.7 mg/dL this is increased from around 1.5 mg/dL yesterday this may be around his new baseline 2. Morbid obesity 3. Pulmonary embolus continue anticoagulation 4. Hypertension this is controled Exam (PN)-Nephrology - Vital Signs Vital signs: Period Temp Pulse Resp BP Sys/Perla Pulse Ox Last 24 Hr 97.8 F-98.9 F 75-96 18-22 131-157/55-91 79-98 - Lab 02/21/17 05:29 02/21/17 05:29 Most recent lab results ABG pH 7.389 (7.35-7.45) 02/16/17 08:13 ABG pCO2 41.8 MM HG (35-48) 02/16/17 08:13 ABG pO2 89.2 MM HG (80-95) 02/16/17 08:13 ABG HCO3 24.4 MMOL/L (20-26) 02/16/17 08:13 ABG O2 Saturation 96.2 % (95-100) 02/16/17 08:13 Calcium 8.2 MG/DL (8.5-10.1) L 02/21/17 05:29 Magnesium 2.7 MG/DL (1.8-2.4) H 02/21/17 05:29
[2017-02-21] MEDS: APIXABAN 5 MG TABLET PO SCH (20:27)
[2017-02-21] MEDS: ATORVASTATIN 20 MG TABLET PO SCH (20:27)
[2017-02-22] MEDS ORDERED: LEVOFLOXACIN 500 MG TABLET PO ONE (00:01)
[2017-02-22] MEDS: ALBUTEROL/IPRATROPIUM 3 ML NEB RESP TX SCH ×4 (03:03→14:26)
[2017-02-22 06:34] LABS: Basophils % 0.1 % (0.0-0.8); Eosinophils % 0.1 % (0.00-10.9); Hematocrit 32.1 VOL% (42.0-52.0); Hemoglobin 10.2 GM/DL (14.0-18.0); Immature Granulocytes % 0.7 %; Immature Granulocytes Absolute 0.06 #; Lymphocytes # 1.7 10*3/uL (1.4-4.0); Mean Corpuscular HGB Conc 31.8 GM/DL (32-36); Mean Corpuscular Hemoglobin 33 PG (27-34); Mean Corpuscular Volume 103.2 FL (87-102); Mean Platelet Volume 10.1 FL (9.6-12.0); Monocytes # 0.8 10*3/uL (0.11-0.8); Monocytes % 9.3 % (1.7-12.7); NRBC # 0.03 10*3/uL; Neutrophils # 5.9 10*3/uL (1.4-7.4); Neutrophils % 69.8 % (38.7-73.9); Platelet Count 142 T/CUMM (130-400); Red Blood Count 3.11 MC/CUMM (3.8-5.5); Red Cell Distribution Width 15.6 % (9.3-17.3); White Blood Count 8.5 T/CUMM (4-12)
[2017-02-22 07:02] LABS: Calcium 8.1 MG/DL (8.5-10.1); Magnesium 2.8 MG/DL (1.8-2.4); Osmolality,Calculated 300.7 MOS/KG (273-304); Potassium 4.8 MMOL/L (3.5-5.1)
[2017-02-22] MEDS: INSULIN REGULAR 100 UNIT/ML SUBCUT SCH ×3 (08:51→16:40)
[2017-02-22] MEDS ORDERED: predniSONE 20 MG TABLET PO SCH (09:00)
[2017-02-22] MEDS: APIXABAN 5 MG TABLET PO SCH (09:23)
[2017-02-22] MEDS: VALSARTAN 80 MG TABLET PO SCH (09:23)
[2017-02-22] MEDS: MONTELUKAST 10 MG TABLET PO SCH (09:24)
[2017-02-22] MEDS: PANTOPRAZOLE 40 MG TABLET PO SCH (09:24)
[2017-02-22] MEDS: hydrALAZINE 10 MG TABLET PO SCH ×2 (09:24→16:41)
[2017-02-22] MEDS: amLODIPine 5 MG TABLET PO SCH (09:25)
[2017-02-22] MEDS: CALCIUM CARBONATE CHEW 500 MG TABLET PO SCH ×3 (09:25→16:41)
[2017-02-22] MEDS: ISOSORBIDE DINITRATE 20 MG TABLET PO SCH (09:25)
[2017-02-22] MEDS: CARVEDILOL 6.25 MG TABLET PO SCH (09:25)
--- NOTE | 2017-02-22 11:58 | Pulmonology Progress Note ---
Pulmonary - PN: Subj Interval history: Bry Hall, [facility] acting as scribe for Dr. Alan Kendrick Mr. Gama is a 61 year old white male who we saw in pulmonary consultation on . At that time, our impressions were: 1. Deep venous thrombophlebitis with acute bilateral pulmonary emboli 2. Acute bronchitis with bronchospasm. 3. Bronchospastic disease 4. Morbid obesity 5. High blood pressure 6. Diabetes mellitus 7. See past history 8. Acute renal failure resolving 02/22/17. The patient was seen today along with Carmela Beard RN. The patient has now been moved to the medical floor. Over the weekend, his IV Aminophylline was discontinued. We are unsure why. On chest exam, he continues to have significant LAW wheezing and mild high pitched peripheral wheezing. He has been switched to oral Prednisone as well. He continues on his Singulair. He feels he is much improved and would like to be discharged home today. Medications have been reviewed. Labs have been reviewed. Exam (Progress Note) - Constitutional Vitals: Period Temp Pulse Resp BP Sys/Perla Pulse Ox Last 24 Hr 97 F-98.7 F 70-105 15-24 108-157/61-76 87-100 Exam: Chest...see above Heart no gallop Abd is massively obese, but nontender; bowel sounds are positive x 4 Ext with nothing to suggest acute DVT Psych oriented x 4 Neuro long tract motor function is intact Plan: Continue present treatment. See orders. Results - Labs CBC & BMP: 02/22/17 06:22 02/22/17 06:22 Specialty Discharge - Follow Up or Referrals Follow up with: Kolby Herrera MD [Physician] - 03/16/17 7:40 am (CBC, BMP with mag, EKG ) Alan Kendrick MD [Physician] - 03/10/17 1:00 pm
--- NOTE | 2017-02-22 12:33 | Nephrology Progress Note ---
Nephrology - PN: Subj Interval history: The patient is resting comfortably. Does have a slight expiratory wheeze on exam. Urine output is starting to orange picker. Creatinine is 3.6. Continue with IV fluids. Daily BMP. 02/22/2017. The patient is resting comfortably. Serum creatinine is at his baseline with creatinine of 1.6. No other acute changes. No fevers or chills. Exam (PN)-Nephrology - Vital Signs Vital signs: Period Temp Pulse Resp BP Sys/Perla Pulse Ox Last 24 Hr 97 F-98.7 F 70-105 15-24 108-157/61-76 87-100 - General Appearance General appearance: well-developed, well-nourished Neck: supple Respiratory: clear Cardiology: regular rate, regular rhythm Gastrointestinal: normoactive bowel sounds, no tenderness Neurologic: alert and oriented x3 Musculoskeletal: no clubbing Psychiatric: mood/affect appropriate - Lab 02/22/17 06:22 02/22/17 06:22 Most recent lab results ABG pH 7.389 (7.35-7.45) 02/16/17 08:13 ABG pCO2 41.8 MM HG (35-48) 02/16/17 08:13 ABG pO2 89.2 MM HG (80-95) 02/16/17 08:13 ABG HCO3 24.4 MMOL/L (20-26) 02/16/17 08:13 ABG O2 Saturation 96.2 % (95-100) 02/16/17 08:13 Calcium 8.1 MG/DL (8.5-10.1) L 02/22/17 06:22 Magnesium 2.8 MG/DL (1.8-2.4) H 02/22/17 06:22 Assessment and Plan (1) Acute renal failure Status: Acute Assessment and plan: Renal function has recovered to patient's baseline. Daily BMP. Current Visit: Yes (2) Dyspnea on exertion Status: Acute Assessment and plan: This has improved. Current Visit: Yes (3) Morbid obesity Status: Chronic Current Visit: Yes (4) Deep vein thrombosis (DVT) of popliteal vein of left lower extremity Status: Chronic Current Visit: Yes (5) Bilateral pulmonary embolism Status: Acute Current Visit: Yes (6) Diabetes Status: Chronic Assessment and plan: Continue with sliding scale insulin. Current Visit: Yes Qualifiers: Diabetes mellitus type: type 2 Chronic kidney disease stage: stage 3 ( moderate)
--- NOTE | 2017-02-22 16:16 | Discharge Summary ---
Elvin Quintanilla Lesley, YUSRA, am scribing for, and in the presence of, Chiquis Mclean MD 16:13. Hospital Course - Hospital Course Hospital Course: SKIFF OPERATOR: DR. CARR PCP: [facility] [place] SUMMARY: Mr. Gama, 61WM, with risk factors significant for: hypertension, dyslipidemia, obesity, diabetes, tobaccoism. History of DVT 2005, CKD. Admitted February 16, 2017 with acute shortness of breath, found to have bilateral pulmonary emboli, CHF. He was taken emergently to the cardiac catheterization lab where Dr. Carr performed catheter directed thrombolysis to right and left pulmonary artery (EKOS) for submassive pulmonary emboli. He tolerated the procedure well and without complication and was returned to our CCU in stable condition. Echocardiogram: EF 65%, 2-3+ concentric LVH, RVSP 47 mmHg + RAP. During the course of hospitalization, venous doppler lower extremity reveals an eccentric, nonocclusive probable chronic DVT of the left popliteal vein. Renal ultrasound: No significant abnormality. Creatinine did elevate to 3.6, but this has now returned to baseline at 1.6. Hematocrit has remained stable, plan to increase Eliquis to 10 mg twice daily for 7 days. Will reduce to 5 mg twice daily at that point. The patient will follow up with Dr. Carr at [facility] in 2 weeks with BMP with mag, CBC, EKG. Discharge medications: Eliquis 10 mg twice daily 7 days then, Eliquis 5 mg p.o. twice daily Valsartan 40 mg p.o. twice daily Coreg 6.25 mg p.o. twice daily Hydralazine 10 mg p.o. 3 times daily Isosorbide dinitrate 20 mg p.o. twice daily Amlodipine 5 mg p.o. daily Atorvastatin 20 mg p.o. every evening Furosemide 40 mg p.o. daily Protonix 40 mg p.o. daily Prednisone 40 mg p.o. daily Singulair 10 mg p.o. twice daily Glipizide 10 mg p.o. twice daily Continue Furosemide Tab [Lasix Tab] 40 mg PO DAILY glipiZIDE [Glipizide] 10 mg PO BID - Time spent with patient Time with patient DS: Greater than 30 minutes Diagnosis - Discharge Diagnosis (1) Dyspnea on exertion Status: Resolved (2) Morbid obesity Status: Chronic (3) Deep vein thrombosis (DVT) of popliteal vein of left lower extremity Status: Chronic (4) Bilateral pulmonary embolism Status: Chronic (5) Diabetes Status: Chronic (6) Acute renal failure Status: Resolved (7) Cor pulmonale, acute Status: Resolved (8) Sleep disorder Status: Chronic (9) Hyperkalemia Status: Resolved (10) Dyslipidemia Status: Chronic (11) Tobacco abuse Status: Chronic (12) Hypertension Status: Chronic Specialty Discharge - Follow Up or Referrals Follow up with: Kolby Carr MD [Physician] - 2 Weeks (CBC, BMP with mag, EKG) Alan Kendrick MD [Physician] - 2 Weeks Discharge Plan - Discharge Data Disposition: Disch To Home/Self Care Condition at Discharge: Stable Discharge Diet: diabetic diet, heart healthy Activity: resume usual activities as tolerated, no lifting (Post cardiac cath limitations), wear oxygen at all times Hygiene: may shower Weight Bearing at Discharge: full weight bearing Driving: no restrictions Contact your physician if you experience:: fever over 101, Redness or swelling, Shortness of breath - Discharge Medications New amLODIPine [Norvasc] 5 mg PO DAILY #30 tablet Atorvastatin [Lipitor] 20 mg PO BEDTIME #30 tablet Carvedilol [Coreg] 6.25 mg PO BID #60 tablet hydrALAZINE TAB [Apresoline Tab] 10 mg PO TID #90 tablet Isosorbide Dinitrate [Isordil] 20 mg PO BID #60 tablet Pantoprazole Tab [Protonix Tab] 40 mg PO DAILY #30 tablet predniSONE TAB [PredniSONE] 40 mg PO DAILY #42 tablet Valsartan [Diovan] 40 mg PO BID #60 tablet Apixaban [Eliquis] 5 mg PO BID #60 tablet Montelukast Tab [Singulair Tab] 10 mg PO BID #60 tablet Apixaban [Eliquis] 10 mg PO BID #14 tablet Continue Furosemide Tab [Lasix Tab] 40 mg PO DAILY glipiZIDE [Glipizide] 10 mg PO BID Discontinued Aspirin 81 mg PO DAILY dilTIAZem HCl [Cartia XT] 120 mg DAILY - Follow Up or Referral Follow Up: Kolby Carr MD [Physician] - 2 Weeks (CBC, BMP with mag, EKG) Alan Kendrick MD [Physician] - 2 Weeks - Forms/Instructions Exam - Constitutional Vitals: Period Temp Pulse Resp BP Sys/Perla Pulse Ox Last 24 Hr 97 F-98.7 F 70-105 15-24 108-157/61-76 87-100 General appearance: morbidly obese Exam: General: Appears well with no apparent distress. Pleasant and cooperative. Appears comfortable. Morbidly obese HEENT: PERRL, normocephalic, atraumatic. Mucous membranes moist. No jaundice noted. Conjunctiva moist and clear, sclerae anicteric. Neck: No JVD/HJR, no thyromegaly or lymphadenopathy noted. Cardiac: Regular rate and rhythm. No murmur rub or gallop. PMI is nondisplaced. Lungs: Wheezing bilaterally to auscultation without accessory muscle use to assist the respiratory pattern. Oxygen in use via nasal cannula. Abdomen: Soft, bowel sounds normoactive. Nontender and nondistended. No abdominal bruit or thrill noted. No masses noted. Musculoskeletal: No fluid collection. Active range of motion noted at all extremities. Extremities: No clubbing, cyanosis noted. 3+ edema to right lower extremity, 2 + edema in the left lower gutierrez upper extremity pulses 2+. Lower extremity pulses 2+. Capillary refill less than 3 seconds. Skin: No unusual lesions or rashes. No skin breakdown appreciated. Neuro: Awake, alert and oriented 3. Moves all extremities well without hemiparesis or paralysis. No essential tremor is appreciated. Discharge Results Procedures and tests throughout hospitalization: Pending Orders 02/19/17 15:41 Sputum Culture and Gram Stain Routine 02/19/17 15:52 Sputum Culture and Gram Stain Stat Labs on day of discharge: Labs from last 24 hours 02/22/17 02/22/17 02/22/17 12:09 07:16 06:22 WBC RBC Hgb Hct MCV MCH MCHC RDW Plt Count MPV Neut % (Auto) Lymph % (Auto) [place] % (Auto) Eos % (Auto) Baso % (Auto) Neut # (Auto) Lymph # (Auto) [place] # (Auto) Eos # (Auto) Baso # (Auto) Immature Gran % Nucleated RBC % Immature Gran # Nucleated RBCs # Immature Plt Fraction Sodium Potassium Chloride Carbon Dioxide Anion Gap BUN Creatinine GFR Calculation BUN/Creatinine Ratio Glucose POC Glucose 144 H 206 H Calculated Osmolality Calcium Magnesium Theophylline 2.9 L 02/22/17 02/22/17 02/21/17 06:22 06:22 20:40 WBC 8.5 RBC 3.11 L Hgb 10.2 L Hct 32.1 L MCV 103.2 H MCH 33 MCHC 31.8 L RDW 15.6 Plt Count 142 MPV 10.1 Neut % (Auto) 69.8 Lymph % (Auto) 20.0 L [place] % (Auto) 9.3 Eos % (Auto) 0.1 Baso % (Auto) 0.1 Neut # (Auto) 5.9 Lymph # (Auto) 1.7 [place] # (Auto) 0.8 Eos # (Auto) 0.0 Baso # (Auto) 0.0 Immature Gran % 0.7 Nucleated RBC % 0.4 Immature Gran # 0.06 Nucleated RBCs # 0.03 Immature Plt Fraction 0.0 Sodium 145 Potassium 4.8 Chloride 107 Carbon Dioxide 34 H Anion Gap 8.8 BUN 37 H Creatinine 1.60 H GFR Calculation 80 BUN/Creatinine Ratio 23.00 H Glucose 168 H POC Glucose 249 H Calculated Osmolality 300.7 Calcium 8.1 L Magnesium 2.8 H Theophylline 02/21/17 17:25 WBC RBC Hgb Hct MCV MCH MCHC RDW Plt Count MPV Neut % (Auto) Lymph % (Auto) [place] % (Auto) Eos % (Auto) Baso % (Auto) Neut # (Auto) Lymph # (Auto) [place] # (Auto) Eos # (Auto) Baso # (Auto) Immature Gran % Nucleated RBC % Immature Gran # Nucleated RBCs # Immature Plt Fraction Sodium Potassium Chloride Carbon Dioxide Anion Gap BUN Creatinine GFR Calculation BUN/Creatinine Ratio Glucose POC Glucose 219 H Calculated Osmolality Calcium Magnesium Theophylline DS: Provider Consults: 02/16/17 10:13 Consult to Physician [CONS] Routine Comment: PTE's, Consider EKOS Consulting Provider: Kolby Carr 02/17/17 07:03 Consult to Physician [CONS] Routine Comment: elevated BUN/CREAT Consulting Provider: Jonathon Hernandez Jr. Consult to Specialist Group: Nephrology When should Consulting Provider be notified: Now 02/18/17 13:12 Consult to Sleep Center [CONS] Routine Reason for Sleep Center: Sleep Center Physician Consult Comment: sleep disorder concerning for apnea 02/19/17 09:22 Consult to Case Mgmt/Social Srvs [CONS] Routine Reason for Case Mgmt/Social Srvs: Other Consult Comment: home oxygen 02/19/17 12:49 Consult to Physician [CONS] Routine Comment: Consulting Provider: Alan Kendrick Consult to Specialist Group: Pulmonology Person Notified: Bry Hall Date Notified: 02/19/17 Time Notified: 14:42 02/20/17 08:43 Consult to Physical Therapy [CONS] Routine Reason for Physical Therapy: Evaluate and Treat Consult Comment: Wants patient up today 02/20/17 08:55 Consult to Physical Therapy [CONS] Routine Reason for Physical Therapy: Weakness Gait Training Consult Comment: S/P PE/obesity; hasn't gotten up in 5 days; lives alone 02/20/17 14:21 Consult to Case Mgmt/Social Srvs [CONS] Routine Reason for Case Mgmt/Social Srvs: Home Health Consult Comment: needs PT w/HH for discharge tomorrow Expected date of discharge: 02/22/17 Vinay Quintanilla Jennifer, MD, personally performed the services described in this documentation, ascribed by Sandy Oconnor NP in my presence, and it is both accurate and complete [id number] .
[2017-02-22 16:34] VITALS: BP 163/78
--- NOTE | 2017-02-25 13:50 | Physician Query Form ---
CLICK EDIT DOCUMENT TO SELECT QUERY ANSWER --> OK --> SIGN Mary Browning RN, CCDS Certified Clinical Catalogue Illustrator W) [phone] (f) [phone] [email or web address] PROVIDERS: Make your selection(s) from the choices in EACH section by typing an "x" and enter comments in the comment section. Please use your independent medical judgment in providing your response. This request does not imply that any particular answer is desired or expected. CLINICAL INDICATORS: (Providers should not edit this section) Medical Record indicates that the patient was admitted with "Bilateral pulmonary embolism", "evaluation of severe SOB", Respirations of 30# with Sat's of 86% in the ER, AND the patient is being treated with CPAP/ Non-Rebreather Mask @ 15 liters. ABG's pH 7.389----pCO2 41.8----p02 89.2 If possible, please further clarify the type and acuity of respiratory diagnosis : ACUITY: (x ) Acute ( ) Chronic ( ) Acute on Chronic TYPE: (x ) Respiratory failure with hypoxia ( ) Respiratory failure with hypercapnia ( ) Respiratory Arrest ( ) Postprocedural/postoperative respiratory failure ( ) Respiratory Insufficiency ( ) ARDS (Adult/Acute Respiratory Distress Syndrome) ( ) Other, please specify: ( ) Clinically unable to determine Recognized criteria for respiratory failure PH <7.35 or >7.45 PO2 <60 PCO2 >50 RR >24 O2 Sat <90% on RA or <95% on O2 Use of accessory muscles Unable to speak in full sentences Intubation is not required COMMENTS: PLEASE ALSO DOCUMENT RESPONSE IN PROGRESS NOTES AND/OR DISCHARGE SUMMARY Use of terms such as suspected, likely, or probable (associated with a specific diagnosis that is being evaluated, monitored, or treated as if it exists) are acceptable and can be restated in the discharge summary if not ruled out. MTDD
== END 2017-02-22 17:25 | disposition home health service (06) | DRG 175 ==
LOC: EDUNIT# → EDBD → N.ED 08:00 → N.CL 11:03 → N.CC 13:41 → N.5E 02-19 17:53
PROVIDERS: ADMIT Internal Medicine Cardiovascular Disease; ATTEND Internal Medicine Cardiovascular Disease

== ENCOUNTER 2017-05-31 15:15 | Inpatient (IN) ==
[2017-05-31] MEDS ORDERED: FUROSEMIDE 40 MG/4 ML VIAL IV STA (18:07)
[2017-05-31] MEDS ORDERED: FUROSEMIDE 40 MG/4 ML VIAL ONE (18:25)
[2017-05-31 18:42] LABS: Basophils % 0.3 % (0.0-0.8); Eosinophils # 0.2 10*3/uL (0.0-0.87); Eosinophils % 3.4 % (0.00-10.9); Hematocrit 41.3 VOL% (42.0-52.0); Hemoglobin 12.9 GM/DL (14.0-18.0); Immature Granulocytes % 0.3 %; Immature Granulocytes Absolute 0.02 #; Lymphocytes # 2.1 10*3/uL (1.4-4.0); Lymphocytes % 30.5 % (21.2-54.2); Mean Corpuscular HGB Conc 31.2 GM/DL (32-36); Mean Corpuscular Hemoglobin 31 PG (27-34); Mean Corpuscular Volume 97.6 FL (87-102); Mean Platelet Volume 10.5 FL (9.6-12.0); Monocytes # 0.5 10*3/uL (0.11-0.8); Neutrophils # 4.1 10*3/uL (1.4-7.4); Neutrophils % 58.5 % (38.7-73.9); Platelet Count 125 T/CUMM (130-400); Red Blood Count 4.23 MC/CUMM (3.8-5.5); Red Cell Distribution Width 13.5 % (9.3-17.3)
[2017-05-31 18:57] LABS: PT Patient Result 10.7 SECS
[2017-05-31 19:12] LABS: Alanine Aminotransferase 20 U/L (16-61); Albumin 3.6 G/DL (3.4-5.0); Alkaline Phosphatase 68 U/L (45-117); Aspartate Amino Transferase 13 U/L (0-37); Blood Urea Nitrogen 26 MG/DL (7-18); Calcium 8.5 MG/DL (8.5-10.1); Free T4 (Free Thyroxine) 1.02 NG/DL (0.76-1.46); Glucose 92 MG/DL (74-106); Magnesium 1.8 MG/DL (1.8-2.4); Osmolality,Calculated 285.3 MOS/KG (273-304); Potassium 3.9 MMOL/L (3.5-5.1); Sodium 141 MMOL/L (136-145); Troponin I Only < 0.015 NG/ML (0.00-0.045)
[2017-05-31 19:41] LABS: Barbiturates Screen,Urine Negative (Negative); Benzodiazepines Screen,Urine Negative (Negative); Cannabinoid Screen,Urine Negative (Negative); Opiate Screen,Urine Negative (Negative); Phencyclidine Screen,Urine Negative (Negative)
[2017-05-31] MEDS ORDERED: FUROSEMIDE 40 MG/4 ML VIAL IV ONE (23:34)
[2017-05-31] MEDS ORDERED: ONDANSETRON 4 MG/2 ML VIAL IV PRN (23:34)
[2017-05-31] MEDS ORDERED: MORPHINE 2 MG/1 ML SYRINGE IV PRN (23:34)
[2017-05-31] MEDS ORDERED: ALBUTEROL 2.5 MG/3 ML NEB RESP TX PRN (23:34)
[2017-05-31] MEDS ORDERED: DEXTROSE 50% 25 GM/50 ML VIAL IV PRN (23:34)
[2017-05-31] MEDS ORDERED: GLUCAGON 1 MG VIAL IM PRN (23:34)
[2017-06-01] MEDS: ALBUTEROL 2.5 MG/3 ML NEB RESP TX SCH ×7 (00:09→23:34)
[2017-06-01] MEDS: APIXABAN 5 MG TABLET PO SCH ×3 (00:36→20:25)
[2017-06-01] MEDS: glipiZIDE 10 MG TABLET PO SCH ×3 (00:36→20:28)
[2017-06-01] MEDS: VALSARTAN 80 MG TABLET PO SCH ×3 (00:36→20:25)
[2017-06-01] MEDS: MONTELUKAST 10 MG TABLET PO SCH ×3 (00:37→20:26)
[2017-06-01] MEDS: ATORVASTATIN 20 MG TABLET PO SCH ×2 (00:37→20:25)
[2017-06-01 05:19] LABS: Risk Ratio 3.53; VLDL CHOLESTEROL 17.2 MG/DL
[2017-06-01] MEDS: INSULIN REGULAR 100 UNIT/ML SUBCUT SCH ×4 (08:08→20:29)
[2017-06-01] MEDS: amLODIPine 2.5 MG TABLET PO SCH (09:22)
[2017-06-01] MEDS: PANTOPRAZOLE 40 MG TABLET PO SCH (09:22)
[2017-06-01] MEDS: FUROSEMIDE 40 MG TABLET PO SCH (09:22)
[2017-06-01] MEDS: DOCUSATE SODIUM 100 MG CAPSULE PO SCH ×2 (09:23→20:25)
[2017-06-01] MEDS: CARVEDILOL 3.125 MG TABLET PO SCH ×2 (12:10→20:26)
[2017-06-01 16:00] LABS: Apearance,Urine CLEAR (Clear); Bacteria,Urine Occasional /HPF (Few); Bilirubin,Urine Negative (Negative); Blood, Urine Negative (Negative); Glucose,Urine (UA) Negative (Negative); Ketones,Urine Negative (Negative); Mucus,Urine Occasional /LPF (Occasional); Nitrite,Urine Negative (Negative); Protein,Urine Negative; RBC,Urine <1 /HPF (0-4); Squamous Epithelial Cell,Urine Occasional /HPF (0-10); Urine Color Yellow (Yellow); Urine Specific Gravity 1.009 (1.001-1.035); Urine Urobilinogen < 2.0 EU/DL (0.2-1.0); WBC,Urine 2 /HPF (0-6)
[2017-06-02] MEDS: ALBUTEROL 2.5 MG/3 ML NEB RESP TX SCH ×2 (02:42→07:57)
[2017-06-02 08:45] VITALS: BP 128/69
[2017-06-02] MEDS: FUROSEMIDE 40 MG TABLET PO SCH (08:50)
[2017-06-02] MEDS: glipiZIDE 10 MG TABLET PO SCH (08:50)
[2017-06-02] MEDS: VALSARTAN 80 MG TABLET PO SCH (08:50)
[2017-06-02] MEDS: amLODIPine 2.5 MG TABLET PO SCH (08:51)
[2017-06-02] MEDS: PANTOPRAZOLE 40 MG TABLET PO SCH (08:51)
[2017-06-02] MEDS: DOCUSATE SODIUM 100 MG CAPSULE PO SCH (08:51)
[2017-06-02] MEDS: CARVEDILOL 3.125 MG TABLET PO SCH (08:51)
[2017-06-02] MEDS: MONTELUKAST 10 MG TABLET PO SCH (08:51)
[2017-06-02] MEDS: APIXABAN 5 MG TABLET PO SCH (08:51)
[2017-06-02] MEDS: INSULIN REGULAR 100 UNIT/ML SUBCUT SCH (09:46)
== END 2017-06-02 11:08 | disposition home health service (06) | DRG 308 ==
LOC: N.ED 15:15 → N.EDINP 21:36 → N.2E 23:14
PROVIDERS: ADMIT Internal Medicine; ATTEND Internal Medicine

== ENCOUNTER 2019-04-09 15:02 | Inpatient (IN) ==
[2019-04-09 15:52] LABS: Basophils % 0.3 % (0.0-0.8); Eosinophils # 0.1 10*3/uL (0.0-0.87); Eosinophils % 0.9 % (0.00-10.9); Hematocrit 52.7 VOL% (42.0-52.0); Immature Granulocytes % 0.6 %; Immature Granulocytes Absolute 0.07 #; Lymphocytes # 2.7 10*3/uL (1.4-4.0); Lymphocytes % 22.7 % (21.2-54.2); Mean Corpuscular HGB Conc 32.3 GM/DL (32-36); Mean Corpuscular Volume 100.6 FL (87-102); Mean Platelet Volume 10.3 FL (9.6-12.0); NRBC # 0.03 10*3/uL; Neutrophils % 68.5 % (38.7-73.9); Platelet Count 182 T/CUMM (130-400); Red Blood Count 5.24 MC/CUMM (3.8-5.5); Red Cell Distribution Width 14.4 % (9.3-17.3); White Blood Count 11.8 T/CUMM (4-12)
[2019-04-09 16:13] LABS: Alanine Aminotransferase 31 U/L (16-61); Albumin 4.3 G/DL (3.4-5.0); Alkaline Phosphatase 89 U/L (45-117); Aspartate Amino Transferase 21 U/L (0-37); Blood Urea Nitrogen 50 MG/DL (7-18); Calcium 9.3 MG/DL (8.5-10.1); Estimated Glom Filtration Rate 37 ML/MIN; Glucose 167 MG/DL (74-106); Osmolality,Calculated 295.4 MOS/KG (273-304); Total Protein 8.1 G/DL (6.4-8.3)
[2019-04-09 16:14] LABS: Troponin I 0.253 NG/ML (0.00-0.045)
[2019-04-09] MEDS ORDERED: ENOXAPARIN 30 MG/0.3 ML SYRINGE SUBCUT STA (17:33)
[2019-04-09] MEDS ORDERED: LACTATED RINGERS 1,000 ML IV SCH (18:00)
[2019-04-09] MEDS ORDERED: ACETAMINOPHEN 325 MG TABLET PO PRN (18:48)
[2019-04-09] MEDS ORDERED: SODIUM POLYSTYRENE SULFATE 15 GM/60 ML BOTTLE PO STA (18:59)
[2019-04-09] MEDS ORDERED: ALBUTEROL/IPRATROPIUM 3 ML NEB RESP TX PRN (19:01)
[2019-04-09 19:16] LABS: ABG Base Excess -2.4 MMOL/L (-2.5-2.5); ABG HCO3 22.2 MMOL/L (20-26); ABG Oxygen Saturation 88.2 % (95-100); ABG PCO2 33.8 MM HG (35-48); ABG PH 7.409 (7.35-7.45); ABG PO2 56.9 MM HG (80-95); ABG TCO2 17.9 MMOL/L (23-27); Allen Test Positive
[2019-04-09] MEDS: ALBUTEROL/IPRATROPIUM 3 ML NEB RESP TX PRN ×2 (20:55→22:47)
[2019-04-09] MEDS: ENOXAPARIN 120 MG/0.8 ML SYRINGE SUBCUT SCH (21:03)
[2019-04-09] MEDS: SODIUM CHLORIDE 0.9% 1,000 ML IV SCH (21:06)
[2019-04-09 22:03] LABS: Troponin I 0.318 NG/ML (0.00-0.045)
[2019-04-10 05:29] LABS: Basophils % 0.2 % (0.0-0.8); Eosinophils # 0.2 10*3/uL (0.0-0.87); Eosinophils % 1.2 % (0.00-10.9); Hematocrit 49.3 VOL% (42.0-52.0); Hemoglobin 15.7 GM/DL (14.0-18.0); Immature Granulocytes % 0.4 %; Immature Granulocytes Absolute 0.05 #; Lymphocytes # 3.4 10*3/uL (1.4-4.0); Lymphocytes % 26.3 % (21.2-54.2); Mean Corpuscular HGB Conc 31.8 GM/DL (32-36); Mean Corpuscular Volume 102.1 FL (87-102); Mean Platelet Volume 11.2 FL (9.6-12.0); Monocytes % 8.4 % (1.7-12.7); NRBC # 0.03 10*3/uL; Neutrophils % 63.5 % (38.7-73.9); Platelet Count 181 T/CUMM (130-400); Red Blood Count 4.83 MC/CUMM (3.8-5.5); Red Cell Distribution Width 14.5 % (9.3-17.3)
[2019-04-10 06:07] LABS: Albumin 3.3 G/DL (3.4-5.0); Bilirubin,Total 0.9 MG/DL (0.2-1.0); Calcium 8.5 MG/DL (8.5-10.1); Osmolality,Calculated 300.1 MOS/KG (273-304); Risk Ratio 4.31; Total Protein 6.8 G/DL (6.4-8.3); VLDL CHOLESTEROL 32.6 MG/DL
[2019-04-10 06:17] LABS: Troponin I 0.231 NG/ML (0.00-0.045)
[2019-04-10] MEDS: SODIUM CHLORIDE 0.9% 1,000 ML IV SCH ×2 (06:46→15:09)
[2019-04-10] MEDS: ASPIRIN CHEW 81 MG TABLET PO SCH (08:41)
[2019-04-10] MEDS: ENOXAPARIN 120 MG/0.8 ML SYRINGE SUBCUT SCH (08:41)
[2019-04-10] MEDS: ALBUTEROL/IPRATROPIUM 3 ML NEB RESP TX SCH ×2 (12:48→19:39)
[2019-04-10] MEDS: SODIUM CHLORIDE 0.45% 1,000 ML IV SCH (15:10)
[2019-04-10] MEDS: methylPREDNISolone SOD SUC 40 MG/1 ML VIAL IV SCH ×2 (16:11→22:47)
[2019-04-10] MEDS: cefTRIAXone 1,000 MG in SYRINGE 1 EACH IV SCH (16:13)
[2019-04-10 18:31] LABS: Apearance,Urine CLEAR (Clear); Bilirubin,Urine Negative (Negative); Blood, Urine Negative (Negative); Glucose,Urine (UA) Negative (Negative); Ketones,Urine Negative (Negative); Mucus,Urine Occasional /LPF (Occasional); Nitrite,Urine Negative (Negative); Protein,Urine Negative; RBC,Urine 2 /HPF (0-4); Squamous Epithelial Cell,Urine Occasional /HPF (0-10); Urine Color Yellow (Yellow); Urine Specific Gravity 1.017 (1.001-1.035); Urine Urobilinogen < 2.0 EU/DL (0.2-1.0); WBC,Urine 1 /HPF (0-6)
[2019-04-10] MEDS: ATORVASTATIN 40 MG TABLET PO SCH (20:33)
[2019-04-10] MEDS: APIXABAN 5 MG TABLET PO SCH (20:33)
[2019-04-11] MEDS: ALBUTEROL/IPRATROPIUM 3 ML NEB RESP TX SCH ×4 (00:12→18:50)
[2019-04-11] MEDS: SODIUM CHLORIDE 0.9% 1,000 ML IV SCH (01:00)
[2019-04-11] MEDS: SODIUM CHLORIDE 0.45% 1,000 ML IV SCH (02:25)
[2019-04-11 06:07] LABS: Albumin 3.6 G/DL (3.4-5.0); Calcium 8.5 MG/DL (8.5-10.1); Osmolality,Calculated 303.1 MOS/KG (273-304)
[2019-04-11] MEDS: methylPREDNISolone SOD SUC 40 MG/1 ML VIAL IV SCH ×3 (06:10→22:28)
[2019-04-11] MEDS: guaiFENesin/DM ER 600-30 MG TABLET PO PRN (06:15)
[2019-04-11] MEDS: ASPIRIN CHEW 81 MG TABLET PO SCH (08:53)
[2019-04-11] MEDS: APIXABAN 5 MG TABLET PO SCH ×2 (08:54→20:21)
[2019-04-11] MEDS ORDERED: DEXTROSE 50% 25 GM/50 ML VIAL IV PRN (09:52)
[2019-04-11] MEDS ORDERED: GLUCAGON 1 MG VIAL IM PRN (09:52)
[2019-04-11] MEDS: GLIMEPIRIDE 2 MG TABLET PO SCH (11:16)
[2019-04-11] MEDS: INSULIN REGULAR 100 UNIT/ML SUBCUT SCH ×3 (12:13→20:21)
[2019-04-11] MEDS: cefTRIAXone 1,000 MG in SYRINGE 1 EACH IV SCH (15:29)
[2019-04-11] MEDS: ATORVASTATIN 40 MG TABLET PO SCH (20:20)
[2019-04-12] MEDS: ALBUTEROL/IPRATROPIUM 3 ML NEB RESP TX SCH ×2 (00:35→08:30)
[2019-04-12 05:22] LABS: Basophils % 0.1 % (0.0-0.8); Hematocrit 43.8 VOL% (42.0-52.0); Immature Granulocytes % 0.7 %; Immature Granulocytes Absolute 0.08 #; Lymphocytes # 0.8 10*3/uL (1.4-4.0); Mean Corpuscular Volume 102.1 FL (87-102); NRBC # 0.02 10*3/uL; Neutrophils % 88.2 % (38.7-73.9); Platelet Count 162 T/CUMM (130-400); Red Blood Count 4.29 MC/CUMM (3.8-5.5); Red Cell Distribution Width 14.3 % (9.3-17.3)
[2019-04-12 05:48] LABS: Albumin 3.4 G/DL (3.4-5.0); Calcium 8.7 MG/DL (8.5-10.1)
[2019-04-12] MEDS: methylPREDNISolone SOD SUC 40 MG/1 ML VIAL IV SCH (06:24)
[2019-04-12] MEDS: guaiFENesin/DM ER 600-30 MG TABLET PO PRN (06:24)
[2019-04-12] MEDS: APIXABAN 5 MG TABLET PO SCH (09:03)
[2019-04-12] MEDS: ASPIRIN CHEW 81 MG TABLET PO SCH (09:04)
[2019-04-12] MEDS: GLIMEPIRIDE 2 MG TABLET PO SCH (09:04)
[2019-04-12] MEDS: INSULIN REGULAR 100 UNIT/ML SUBCUT SCH (09:35)
[2019-04-12 11:57] VITALS: BP 106/67
[2019-04-17] MEDS ORDERED: APIXABAN 5 MG TABLET PO SCH (09:00)
== END 2019-04-12 14:26 | disposition home health service (06) | DRG 189 ==
LOC: N.ED 15:02 → N.EDINP 18:47 → N.TELEN 19:10
PROVIDERS: ADMIT Internal Medicine; ATTEND Internal Medicine